=== PATIENT | female | born 1945 | race Caucasian/White ===

== ENCOUNTER 2023-12-20 15:16 | Inpatient (IN) | payer BC, MEDICARE ==
[2023-12-20 15:53] LABS: Glucose,Whole Blood 209 mg/dL (70-110)
--- NOTE | 2023-12-20 15:53 | ED ---
General Adult HPI - General Chief complaint: Weakness Stated complaint: Weakness Time Seen by Provider: 12/20/23 15:29 Source: EMS, RN notes reviewed, old records reviewed Mode of arrival: EMS Limitations: no limitations - History of Present Illness Initial comments: 78-year-old female presenting with confusion, and increased weakness. Patient is accompanied by her son. Apparently the patient has had increased confusion over the past 1 year. She had weakness which had progressed over the past several days and is currently being treated for urinary tract infection. She did not take her medication this morning which includes metoprolol, Coumadin and blood pressure medication. She denies chest pain or abdominal pain. Denies fever. Denies vomiting. Denies focal weakness. - Related Data Home Medications Medication Instructions Recorded Confirmed Insulin Glargine [Lantus Vial] 25 unit SQ DAILY@1200 12/20/23 12/20/23 Irbesartan 300 mg PO DAILY 12/20/23 12/20/23 Metoprolol Tartrate [Lopressor] 100 mg PO BID 12/20/23 12/20/23 Sulfamethox-Tmp 800-160Mg [Bactrim 1 tab PO BID 12/20/23 12/20/23 DS 800-160 mg] Warfarin Sodium 4 mg PO DAILY 12/20/23 12/20/23 hydroCHLOROthiazide [Hydrodiuril] 50 mg PO DAILY PRN 12/20/23 12/20/23 metFORMIN HCL 1,000 mg PO BID 12/20/23 12/20/23 sitaGLIPtin [Januvia] 100 mg PO DAILY 12/20/23 12/20/23 Allergies Allergy/AdvReac Type Severity Reaction Status Date / Time No Known Allergies Allergy Verified 12/20/23 15:57 Review of Systems ROS Statement: Those systems with pertinent positive or pertinent negative responses have been documented in the HPI. ROS Other: All systems not noted in ROS Statement are negative. Past Medical History Past Medical History: Atrial Fibrillation, Cancer, Diabetes Mellitus, Hypertension Additional Past Medical History / Comment(s): Breast cancer 2019 History of Any Multi-Drug Resistant Organisms: None Reported Past Surgical History: Breast Surgery, Cholecystectomy Additional Past Surgical History / Comment(s): Double masectomy 2019 Past Psychological History: No Psychological Hx Reported Smoking Status: Never smoker Past Alcohol Use History: None Reported Past Drug Use History: None Reported General Exam Limitations: no limitations General appearance: alert, in no apparent distress Head exam: Present: atraumatic, normocephalic Eye exam: Present: normal appearance, PERRL ENT exam: Present: mucous membranes dry Neck exam: Present: normal inspection. Absent: tenderness, meningismus Respiratory exam: Present: normal lung sounds bilaterally. Absent: respiratory distress, wheezes, rales Cardiovascular Exam: Present: tachycardia, irregular rhythm GI/Abdominal exam: Present: soft. Absent: distended, tenderness, guarding Extremities exam: Present: normal inspection, normal capillary refill. Absent: pedal edema Neurological exam: Present: alert, CN II-XII intact. Absent: oriented X3, motor sensory deficit Psychiatric exam: Present: normal affect, normal mood Skin exam: Present: warm, dry, intact. Absent: cyanosis, diaphoretic Course Vital Signs 12/20/23 12/20/23 12/20/23 15:19 15:49 16:23 Temperature 98.3 F Pulse Rate 124 H 121 H 107 H Pulse Rate [ Converter Skimmer ] Respiratory 18 18 20 Rate Blood Pressure 202/124 172/122 184/133 O2 Sat by Pulse 91 L 94 L 94 L Oximetry 12/20/23 12/20/23 12/20/23 16:28 16:34 17:06 Temperature 99.1 F Pulse Rate 110 H 124 H Pulse Rate [ 121 H Converter Skimmer ] Respiratory 18 20 Rate Blood Pressure 193/133 O2 Sat by Pulse 95 95 Oximetry Medical Decision Making - Medical Decision Making Was pt. sent in by a medical professional or institution (FELIZ Mejia, OPERATOR HELPER, urgent care, hospital, or longterm...) When possible be specific @ -No Did you speak to anyone other than the patient for history (EMS, parent, family, police, friend...)? What history was obtained from this source @ -No Did you review nursing and triage notes (agree or disagree)? Why? @ -I reviewed and agree with nursing and triage notes Were old charts reviewed (outside hosp., previous admission, EMS record, old EKG, old radiological studies, urgent care reports/EKG's, longterm records)? Report findings @ -No old charts were reviewed Differential Altered Mental Status: Hypoglycemia, DKA, hypercapnia, ETOH, overdose, CO poisoning, trauma, myxedema coma, HTN encephalopathy, infection, encephalitis, psychosis, intercranial hemorrhage, hepatic encephalopathy, meningitis, CVA, this is not meant to be an all-inclusive list Differential Weakness: Hypoglycemia, shock, sepsis, hyponatremia, anemia, infection, CA, ETOH, adverse medicine reaction, overdose, stroke, this is not meant to be an all-inclusive list. EKG interpreted by me (3pts min.). @EKG: Atrial fibrillation with RVR rate of 137, QRS duration 106, QTc 377, no ST segment elevation. X-rays interpreted by me (1pt min.). @Chest x-ray, increased pulmonary vascular congestion CT interpreted by me (1pt min.). @ -None done U/S interpreted by me (1pt. min.). @ -None done What testing was considered but not performed or refused? (CT, X-rays, U/S, labs)? Why? @ -None What meds were considered but not given or refused? Why? @ -None Did you discuss the management of the patient with other professionals (professionals i.e. , PA, OPERATOR HELPER, lab, RT, psych nurse, outreach and education social worker, traffic line painter, teacher, sales and service officer, casey saw operator)? Give summary @ -Dr. Wood, will admit Was smoking cessation discussed for >3mins.? @ -No Was critical care preformed (if so, how long)? @ -Yes, 35 minutes Were there social determinants of health that impacted care today? How? (Homelessness, low income, unemployed, alcoholism, drug addiction, transportation, low edu. Level, literacy, decrease access to med. care, senior care, rehab)? @ -No Was there de-escalation of care discussed even if they declined (Discuss DNR or withdrawal of care, Hospice)? DNR status @ -No What co-morbidities impacted this encounter? (DM, HTN, Smoking, COPD, CAD, Cancer, CVA, ARF, Chemo, Hep., AIDS, mental health diagnosis, sleep apnea, morbid obesity)? @ -Atrial fibrillation, hypertension Was patient admitted / discharged? Hospital course, mention meds given and route, prescriptions, significant lab abnormalities, going to OR and other pertinent info. @ -78-year-old female presenting from home with increased weakness, patient is in atrial fibrillation with RVR upon arrival. Laboratory studies reveal normal CBC, chest x-ray showing mild CHF. She has a magnesium of 1.3 which is r eplaced. Troponin is negative. Urinalysis is negative. Patient will be admitted for atrial fibrillation with RVR and CHF as well as hypomagnesemia. Undiagnosed new problem with uncertain prognosis? @ -No Drug Therapy requiring intensive monitoring for toxicity (Heparin, Nitro, Insulin, Cardizem)? @ -No Were any procedures done? @ -No Diagnosis/symptom? @Atrial fibrillation with RVR, hypomagnesemia, CHF Acute, or Chronic, or Acute on Chronic? @Acute Uncomplicated (without systemic symptoms) or Complicated (systemic symptoms)? @ -Default Side effects of treatment? @ -No Exacerbation, Progression, or Severe Exacerbation? @ -No Poses a threat to life or bodily function? How? (Chest pain, USA, CA, pneumonia, PE, COPD, DKA, ARF, appy, cholecystitis, CVA, Diverticulitis, Homicidal, Suici harsha, threat to staff... and all critical care pts) @Yes, arrhythmia, CHF - Lab Data Result diagrams: 12/20/23 15:45 12/20/23 15:45 Lab Results 12/20/23 12/20/23 12/20/23 Range/Units 15:45 15:45 15:45 WBC 8.7 (3.8-10.6) k/uL RBC 4.43 (3.80-5.40) m/uL Hgb 12.4 (11.4-16.0) gm/dL Hct 39.8 (34.0-46.0) % MCV 89.8 (80.0-100.0) fL MCH 27.9 (25.0-35.0) pg MCHC 31.1 (31.0-37.0) g/dL RDW 15.8 H (11.5-15.5) % Plt Count 311 (150-450) k/uL MPV 9.3 Neutrophils % 68 % Lymphocytes % 22 % Monocytes % 7 % Eosinophils % 1 % Basophils % 0 % Neutrophils # 5.9 (1.3-7.7) k/uL Lymphocytes # 1.9 (1.0-4.8) k/uL Monocytes # 0.6 (0-1.0) k/uL Eosinophils # 0.1 (0-0.7) k/uL Basophils # 0.0 (0-0.2) k/uL PT 17.3 H (10.0-12.5) sec INR 1.7 H (<1.2) APTT 32.8 H (22.0-30.0) sec Sodium 135 L (137-145) mmol/L Potassium 4.5 (3.5-5.1) mmol/L Chloride 102 (98-107) mmol/L Carbon Dioxide 25 (22-30) mmol/L Anion Gap 8 mmol/L BUN 22 H (7-17) mg/dL Creatinine 0.67 (0.52-1.04) mg/dL Est GFR (CKD-EPI)AfAm >90 (>60 ml/min/1.73 sqM) Est GFR (CKD-EPI)NonAf 83 (>60 ml/min/1.73 sqM) Glucose 203 H (74-99) mg/dL POC Glucose (mg/dL) (70-110) mg/dL POC Glu System Specialist ID Plasma Lactic Acid Daniel (0.7-2.0) mmol/L Calcium 9.4 (8.4-10.2) mg/dL Magnesium 1.3 L (1.6-2.3) mg/dL Total Bilirubin 0.8 (0.2-1.3) mg/dL AST 47 H (14-36) U/L ALT 39 H (4-34) U/L Alkaline Phosphatase 97 (38-126) U/L Troponin I (0.000-0.034) ng/mL Total Protein 7.0 (6.3-8.2) g/dL Albumin 3.9 (3.5-5.0) g/dL Urine Color Urine Appearance (Clear) Urine pH (5.0-8.0) Ur Specific Weston (1.001-1.035) Urine Protein (Negative) Urine Glucose (UA) (Negative) Urine Ketones (Negative) Urine Blood (Negative) Urine Nitrite (Negative) Urine Bilirubin (Negative) Urine Urobilinogen (<2.0) mg/dL Ur Leukocyte Esterase (Negative) 12/20/23 12/20/23 12/20/23 Range/Units 15:45 15:45 15:51 WBC (3.8-10.6) k/uL RBC (3.80-5.40) m/uL Hgb (11.4-16.0) gm/dL Hct (34.0-46.0) % MCV (80.0-100.0) fL MCH (25.0-35.0) pg MCHC (31.0-37.0) g/dL RDW (11.5-15.5) % Plt Count (150-450) k/uL MPV Neutrophils % % Lymphocytes % % Monocytes % % Eosinophils % % Basophils % % Neutrophils # (1.3-7.7) k/uL Lymphocytes # (1.0-4.8) k/uL Monocytes # (0-1.0) k/uL Eosinophils # (0-0.7) k/uL Basophils # (0-0.2) k/uL PT (10.0-12.5) sec INR (<1.2) APTT (22.0-30.0) sec Sodium (137-145) mmol/L Potassium (3.5-5.1) mmol/L Chloride (98-107) mmol/L Carbon Dioxide (22-30) mmol/L Anion Gap mmol/L BUN (7-17) mg/dL Creatinine (0.52-1.04) mg/dL Est GFR (CKD-EPI)AfAm (>60 ml/min/1.73 sqM) Est GFR (CKD-EPI)NonAf (>60 ml/min/1.73 sqM) Glucose (74-99) mg/dL POC Glucose (mg/dL) 209 H (70-110) mg/dL POC Glu System Specialist ID Vagdaniel, Glenna Plasma Lactic Acid Daniel 1.7 (0.7-2.0) mmol/L Calcium (8.4-10.2) mg/dL Magnesium (1.6-2.3) mg/dL Total Bilirubin (0.2-1.3) mg/dL AST (14-36) U/L ALT (4-34) U/L Alkaline Phosphatase (38-126) U/L Troponin I <0.012 (0.000-0.034) ng/mL Total Protein (6.3-8.2) g/dL Albumin (3.5-5.0) g/dL Urine Color Urine Appearance (Clear) Urine pH (5.0-8.0) Ur Specific Weston (1.001-1.035) Urine Protein (Negative) Urine Glucose (UA) (Negative) Urine Ketones (Negative) Urine Blood (Negative) Urine Nitrite (Negative) Urine Bilirubin (Negative) Urine Urobilinogen (<2.0) mg/dL Ur Leukocyte Esterase (Negative) 12/20/23 Range/Units 16:51 WBC (3.8-10.6) k/uL RBC (3.80-5.40) m/uL Hgb (11.4-16.0) gm/dL Hct (34.0-46.0) % MCV (80.0-100.0) fL MCH (25.0-35.0) pg MCHC (31.0-37.0) g/dL RDW (11.5-15.5) % Plt Count (150-450) k/uL MPV Neutrophils % % Lymphocytes % % Monocytes % % Eosinophils % % Basophils % % Neutrophils # (1.3-7.7) k/uL Lymphocytes # (1.0-4.8) k/uL Monocytes # (0-1.0) k/uL Eosinophils # (0-0.7) k/uL Basophils # (0-0.2) k/uL PT (10.0-12.5) sec INR (<1.2) APTT (22.0-30.0) sec Sodium (137-145) mmol/L Potassium (3.5-5.1) mmol/L Chloride (98-107) mmol/L Carbon Dioxide (22-30) mmol/L Anion Gap mmol/L BUN (7-17) mg/dL Creatinine (0.52-1.04) mg/dL Est GFR (CKD-EPI)AfAm (>60 ml/min/1.73 sqM) Est GFR (CKD-EPI)NonAf (>60 ml/min/1.73 sqM) Glucose (74-99) mg/dL POC Glucose (mg/dL) (70-110) mg/dL POC Glu System Specialist ID Plasma Lactic Acid Daniel (0.7-2.0) mmol/L Calcium (8.4-10.2) mg/dL Magnesium (1.6-2.3) mg/dL Total Bilirubin (0.2-1.3) mg/dL AST (14-36) U/L ALT (4-34) U/L Alkaline Phosphatase (38-126) U/L Troponin I (0.000-0.034) ng/mL Total Protein (6.3-8.2) g/dL Albumin (3.5-5.0) g/dL Urine Color Light Yellow Urine Appearance Clear (Clear) Urine pH 5.5 (5.0-8.0) Ur Specific Weston 1.015 (1.001-1.035) Urine Protein Trace H (Negative) Urine Glucose (UA) Negative (Negative) Urine Ketones 1+ H (Negative) Urine Blood Negative (Negative) Urine Nitrite Negative (Negative) Urine Bilirubin Negative (Negative) Urine Urobilinogen <2.0 (<2.0) mg/dL Ur Leukocyte Esterase Negative (Negative) Critical Care Time Critical Care Time: Yes Total Critical Care Time: 35 Disposition Clinical Impression: Atrial fibrillation with RVR, CHF (congestive heart failure), Hypomagnesemia Disposition: ADMITTED IP TO THIS HOSP Condition: Stable Is patient prescribed a controlled substance at d/c from ED?: No Referrals: Amarilis Thornton MD [Primary Care Provider] - 1-2 days Time of Disposition: 17:11
--- NOTE | 2023-12-20 16:20 | XR ---
EXAMINATION TYPE: XR chest 2V DATE OF EXAM: 12/20/2023 4:12 PM CLINICAL INDICATION:Female, 78 years old with history of Weakness; PHH COMPARISON: None TECHNIQUE: XR chest 2V Frontal and lateral views of the chest. FINDINGS: Lungs/Pleura: There is no evidence of pleural effusion, focal consolidation, or pneumothorax. Pulmonary vascularity: Pulmonary vascular congestion. Heart/mediastinum: Cardiomediastinal silhouette is enlarged and stable. Musculoskeletal: No acute osseous pathology. Surgical clips project over the left axilla. IMPRESSION: Cardiomegaly and mild pulmonary vascular congestion. Correlate with BNP for congestive heart failure.
[2023-12-20 16:35] LABS: Basophils % (A) 0 %; Eosinophils # (A) 0.1 k/uL (0-0.7); Eosinophils % (A) 1 %; HCT 39.8 % (34.0-46.0); HGB 12.4 gm/dL (11.4-16.0); Lymphocytes # (A) 1.9 k/uL (1.0-4.8); Lymphocytes % (A) 22 %; MCH 27.9 pg (25.0-35.0); MCHC 31.1 g/dL (31.0-37.0); MCV 89.8 fL (80.0-100.0); Mean Platelet Volume 9.3; Monocytes # (A) 0.6 k/uL (0-1.0); Monocytes % (A) 7 %; Neutrophils # (A) 5.9 k/uL (1.3-7.7); Neutrophils % (A) 68 %; Platelet Count 311 k/uL (150-450); RBC 4.43 m/uL (3.80-5.40); RDW 15.8 % (11.5-15.5); WBC 8.7 k/uL (3.8-10.6)
[2023-12-20 16:43] LABS: INR 1.7 (<1.2); Partial Thromboplastin Time 32.8 sec (22.0-30.0); Prothrombin Time 17.3 sec (10.0-12.5)
[2023-12-20 16:58] LABS: Appearance,Urine Clear (Clear); Bilirubin,Urine Negative (Negative); Blood,Urine Negative (Negative); Color,Urine Light Yellow; Glucose,Urine (UA) Negative (Negative); Ketones,Urine 1+ (Negative); Leukocyte Esterase,Urine Negative (Negative); Nitrite,Urine Negative (Negative); PH, Urine 5.5 (5.0-8.0); Protein,Urine Trace (Negative); Specific Gravity,Urine 1.015 (1.001-1.035); Urobilinogen,Urine <2.0 mg/dL (<2.0)
[2023-12-20 16:59] LABS: ALT 39 U/L (4-34); AST 47 U/L (14-36); African American GFR (CKD) >90 (>60 ml/min/1.73 sqM); Albumin 3.9 g/dL (3.5-5.0); Alkaline Phosphatase 97 U/L (38-126); Anion Gap 8 mmol/L; Blood Urea Nitrogen 22 mg/dL (7-17); Calcium 9.4 mg/dL (8.4-10.2); Carbon Dioxide 25 mmol/L (22-30); Chloride 102 mmol/L (98-107); Glucose 203 mg/dL (74-99); Magnesium 1.3 mg/dL (1.6-2.3); Non-African American GFR(CKD) 83 (>60 ml/min/1.73 sqM); Potassium 4.5 mmol/L (3.5-5.1); Sodium 135 mmol/L (137-145); Total Bilirubin 0.8 mg/dL (0.2-1.3)
[2023-12-20] MEDS: SODIUM CHLORIDE 0.9% 500 ML 500 ML IV STA (17:05)
[2023-12-20] MEDS ORDERED: NALOXONE 0.4 MG/ML 1 ML VIAL IV PRN (17:08)
[2023-12-20] MEDS: DILTIAZEM 125 MG in SODIUM CHLORIDE 0.9% 100 ML IV SCH (18:35)
[2023-12-20] MEDS: FUROSEMIDE 10 MG/ML 4 ML VIAL IV STA (18:35)
[2023-12-20] MEDS: DILTIAZEM DRIP BOLUS FROM BAG 1 MG SOLN IV ONE (18:40)
[2023-12-20] MEDS: MAGNESIUM SULFATE-D5W PMX 1 GM in DEXTROSE/WATER 1 100ML.BAG IVPB SCH (18:41)
[2023-12-20] MEDS: ACETAMINOPHEN TAB 500 MG TAB PO STA (19:58)
[2023-12-21 09:46] LABS: INR 2.2 (<1.2); Prothrombin Time 21.8 sec (10.0-12.5)
[2023-12-21] MEDS: LINAGLIPTIN 5 MG TABLET PO SCH (10:52)
[2023-12-21] MEDS: DILTIAZEM ORAL 30 MG TAB PO SCH (10:52)
[2023-12-21] MEDS: metFORMIN 500 MG TAB PO SCH (10:52)
[2023-12-21] MEDS: INSULIN DETEMIR (LEVEMIR) 100 UNIT/ML SYR SQ SCH (10:52)
[2023-12-21] MEDS: LOSARTAN 50 MG TAB PO SCH (10:52)
[2023-12-21] MEDS: METOPROLOL TARTRATE 50 MG TAB PO SCH (10:52)
[2023-12-21] MEDS: MAGNESIUM SULFATE-D5W PMX 1 GM in DEXTROSE/WATER 1 100ML.BAG IVPB SCH ×2 (11:16→16:02)
[2023-12-21] MEDS: NON FORMULARY DRUG (Warfarin Sodium [Warfarin Sodium] 4 MG Tablet) PO SCH (11:16)
[2023-12-21 11:21] LABS: NT-Pro-B-Type Natriuretic Pept 7630 pg/mL
[2023-12-21] MEDS ORDERED: DEXTROSE 50% SYRINGE 50 ML IVP PRN ×2 (11:40)
--- NOTE | 2023-12-21 11:43 | P.HPIM ---
History of Present Illness H&P Date: 12/21/23 Viola Mckeon, is an 78-year-old female patient presents to ER with concerns ofincreased weakness. Records also indicate that patient has had increased confusion over the past year. Patient has poor historian no family present most history is obtained from medical record. According to records patient was recently treated for urinary tract infection. Patient has a past medical history of atrial fibrillation in which she is maintained on Coumadin, diabetes mellitus, breast cancer in 2019 status post bilateral mastectomy, and hypertension.EKG completed showing atrial fibrillation with rapid ventricular response and a heart rate of 137. Chest x-ray completed showing cardiomegaly and pulmonary vascular congestion.labwork revealing troponin 0.012, BNP 7630. UA was negative. This time patient is sitting in bed. Patient denies chest pain or shortness of breath. Patient denies nausea vomiting or diarrhea. Patient denies any urinary burning or frequency Review of Systems please refer to HPI otherwise unremarkable Past Medical History Past Medical History: Atrial Fibrillation, Cancer, Diabetes Mellitus, Hypertensi on Additional Past Medical History / Comment(s): Breast cancer 2019 History of Any Multi-Drug Resistant Organisms: None Reported Past Surgical History: Breast Surgery, Cholecystectomy Additional Past Surgical History / Comment(s): Double masectomy 2019 Past Anesthesia/Blood Transfusion Reactions: No Reported Reaction Past Psychological History: No Psychological Hx Reported Smoking Status: Never smoker Past Alcohol Use History: None Reported Past Drug Use History: None Reported Medications and Allergies Home Medications Medication Instructions Recorded Confirmed Type Insulin Glargine [Lantus Vial] 25 unit SQ DAILY@1200 12/20/23 12/20/23 History Metoprolol Tartrate [Lopressor] 100 mg PO BID 12/20/23 12/20/23 History RX: Irbesartan 300 mg PO DAILY 12/20/23 12/20/23 History RX: Warfarin Sodium 4 mg PO DAILY 12/20/23 12/20/23 History RX: metFORMIN HCL 1,000 mg PO BID 12/20/23 12/20/23 History Sulfamethox-Tmp 800-160Mg [Bactrim 1 tab PO BID 12/20/23 12/20/23 History DS 800-160 mg] hydroCHLOROthiazide [Hydrodiuril] 50 mg PO DAILY PRN 12/20/23 12/20/23 History sitaGLIPtin [Januvia] 100 mg PO DAILY 12/20/23 12/20/23 History Allergies Allergy/AdvReac Type Severity Reaction Status Date / Time No Known Allergies Allergy Verified 12/20/23 15:57 Physical Exam Vitals: Vital Signs Temp Pulse Pulse Pulse Resp BP BP 12/21/23 08:00 98 F 129 H 18 135/75 12/21/23 04:00 97.6 F 104 H 20 160/72 12/21/23 00:00 97.2 F L 102 H 20 12/20/23 23:43 97.2 F L 102 H 20 12/20/23 19:44 117 H 18 186/118 12/20/23 18:53 89 12/20/23 18:52 96 18 192/115 12/20/23 18:42 98.5 F 92 20 210/135 12/20/23 18:00 97.8 F 131 H 20 12/20/23 17:06 124 H 20 12/20/23 16:34 99.1 F 110 H 18 193/133 12/20/23 16:28 121 H 12/20/23 16:23 107 H 20 184/133 12/20/23 15:49 121 H 18 172/122 12/20/23 15:19 98.3 F 124 H 18 202/124 Pulse Ox 12/21/23 08:00 94 L 12/21/23 04:00 94 L 12/21/23 00:00 94 L 12/20/23 23:43 94 L 12/20/23 19:44 95 12/20/23 18:53 12/20/23 18:52 95 12/20/23 18:42 93 L 12/20/23 18:00 95 12/20/23 17:06 95 12/20/23 16:34 95 12/20/23 16:28 12/20/23 16:23 94 L 12/20/23 15:49 94 L 12/20/23 15:19 91 L Intake and Output 12/20/23 12/21/23 12/21/23 22:59 06:59 14:59 Other: # Voids 2 Weight 90.718 kg 90.718 kg Head normocephalic Neck supple Lungs clear to auscultation bilaterally no wheezing or crackles Heart irregular heart rate known atrial fibrillation Abdomen is soft nontender nondistended positive bowel sounds no hepatosplenomegaly Extremities no edema Neuro alert and orientated to 3 Results CBC & Chem 7: 12/20/23 15:45 12/20/23 15:45 Labs: Abnormal Lab Results - Last 24 Hours (Table) 12/20/23 12/20/23 12/20/23 Range/Units 15:45 15:45 15:45 RDW 15.8 H (11.5-15.5) % PT 17.3 H (10.0-12.5) sec INR 1.7 H (<1.2) APTT 32.8 H (22.0-30.0) sec Sodium 135 L (137-145) mmol/L BUN 22 H (7-17) mg/dL Glucose 203 H (74-99) mg/dL POC Glucose (mg/dL) (70-110) mg/dL Magnesium 1.3 L (1.6-2.3) mg/dL AST 47 H (14-36) U/L ALT 39 H (4-34) U/L Urine Protein (Negative) Urine Ketones (Negative) 12/20/23 12/20/23 Range/Units 15:51 16:51 RDW (11.5-15.5) % PT (10.0-12.5) sec INR (<1.2) APTT (22.0-30.0) sec Sodium (137-145) mmol/L BUN (7-17) mg/dL Glucose (74-99) mg/dL POC Glucose (mg/dL) 209 H (70-110) mg/dL Magnesium (1.6-2.3) mg/dL AST (14-36) U/L ALT (4-34) U/L Urine Protein Trace H (Negative) Urine Ketones 1+ H (Negative) Assessment and Plan Assessment: 1. Increased weakness 2. Atrial fibrillation with rapid ventricular response 3. History of atrial fibrillation maintained on Coumadin 4. Recent urinary tract infection. Patient was treated outpatient UA negative 5. History of diabetes mellitus type 2 6. History of essential hypertension 7. History of breast cancer in 2019 with double mastectomy DVT prophylaxis Coumadin. GI prophylaxis Pepcid Cardiology services consulted 2-D echo ordered Patient maintained on Cardizem drip PT OT and case management services consult for discharge planning Repeat labs ordered Time with Patient: Greater than 30 (Greater than 60% of the total time spent in counseling and coordination of care)
[2023-12-21] MEDS: INSULIN ASPART (NovoLOG) 100 UNIT/ML VIAL SQ SCH (13:00)
--- NOTE | 2023-12-21 13:29 | P.CRDCN ---
History of Present Illness History of present illness: HISTORY OF PRESENT ILLNESS: This is a 78-year-old female with a past medical history significant for atrial fibrillation, hypertension, hyperlipidemia, diabetes, CVA, and breast cancer. Adam manolo does not follow with a folder seamer. We have been asked to see the patient in consultation for atrial fibrillation and congestive heart failure. Patient examined at the bedside. Patient's son is at the bedside and providing additional HPI. Patient was recently diagnosed with a urinary tract infection. He states that she has been getting more weak at home. She also has had some altered mental status. She denied any fever or chills. She reports having shortness of breath with exertion on an outpatient basis. She states walking to her mailbox she will become dyspneic. Patient's son also reports that the patient has had breast cancer twice. He states the first time she underwent a double mastectomy and refused radiation or chemotherapy at that time. Last year the patient had a recurrence of her breast cancer and had a surgical procedure to remove the "wound" per her son. She once again refused radiation or chemotherapy. The patient states that she did see a folder seamer last year in [place] before proceeding with her breast surgery. She denies any history of coronary artery disease or congestive heart failure. The patient's family states that she is very weak and they are interested in ECF at the time of discharge. DIAGNOSTICS: - EKG reveals atrial fibrillation with RVR. - Chest xray cardiomegaly and mild pulmonary vascular congestion. - Laboratory data: WBC 8.7. Hemoglobin 12.4. Platelet count 311. Sodium 135. Potassium 4.5. BUN 22. Creatinine 0.67. Magnesium 1.4. Troponin negative x 1. proBNP 7630. TSH 1.180. - Current home cardiac medications include warfarin 4 mg daily, irbesartan 300 mg daily, Toprol tartrate 100 mg twice a day, and hydrochlorothiazide 50 mg daily as needed. REVIEW OF SYSTEMS: At the time of my exam: CONSTITUTIONAL: Denies fever or chills. HEENT: Denies blurred vision, vision changes, or eye pain. Denies hemoptysis CARDIOVASCULAR: Denies chest pain. Denies orthopnea. Denies PND. Denies palpitations RESPIRATORY: Denies shortness of breath. GASTROINTESTINAL: Denies abdominal pain. Denies nausea or vomiting. HEMATOLOGIC: Denies bleeding disorders. GENITOURINARY: Denies any blood in urine. SKIN: Denies pruitis. Denies rash. PHYSICAL EXAM: VITAL SIGNS: Reviewed. GENERAL: Well-developed in no acute distress. HEENT: Head is normocephalic. Pupils are equal, round. Sclerae anicteric. Mucous membranes of the mouth are moist. Neck supple. No JVD or thyromegaly LUNGS: Respirations even and unlabored. Lungs essentially clear to auscultation bilaterally. HEART: Tachycardic. Irregular rate and rhythm. S1 and S2 heard. ABDOMEN: Soft. Nondistended. Nontender. EXTREMITIES: Normal range of motion. No clubbing or cyanosis. Peripheral pulses intact. No lower extremity edema NEUROLOGIC: Awake and alert. Oriented x 3. ASSESSMENT: Atrial fibrillation with RVR, paroxysmal versus persistent Recent urinary tract infection, treated outpatient Altered mental status, resolved Subtherapeutic INR Hypertension Hyperlipidemia Diabetes History of CVA History of breast cancer with previous bilateral mastectomy Hypomagnesemia PLAN: Obtain 2D echo to assess cardiac structure and function Discontinue Coumadin. Begin Eliquis 5 mg twice a day starting tomorrow morning Resume home cardiac medications Add oral Cardizem 30 mg 3 times a day for optimal heart rate control Continue telemetry monitoring Replace magnesium Discontinue IV Cardizem Case management consulted for possible ECF at discharge Further recommendations pending patient course Nurse practitioner note has been reviewed by physician. Signing provider agrees with the documented findings, assessment, and plan of care documented by KEY CUTTER as a scribe. Past Medical History Past Medical History: Atrial Fibrillation, Cancer, Diabetes Mellitus, Hypertension Additional Past Medical History / Comment(s): Breast cancer 2019 History of Any Multi-Drug Resistant Organisms: None Reported Past Surgical History: Breast Surgery, Cholecystectomy Additional Past Surgical History / Comment(s): Double masectomy 2019 Past Anesthesia/Blood Transfusion Reactions: No Reported Reaction Past Psychological History: No Psychological Hx Reported Smoking Status: Never smoker Past Alcohol Use History: None Reported Past Drug Use History: None Reported Medications and Allergies Home Medications Medication Instructions Recorded Confirmed Type Insulin Glargine [Lantus Vial] 25 unit SQ DAILY@1200 12/20/23 12/20/23 History Irbesartan 300 mg PO DAILY 12/20/23 12/20/23 History Metoprolol Tartrate [Lopressor] 100 mg PO BID 12/20/23 12/20/23 History Sulfamethox-Tmp 800-160Mg [Bactrim 1 tab PO BID 12/20/23 12/20/23 History DS 800-160 mg] Warfarin Sodium 4 mg PO DAILY 12/20/23 12/20/23 History hydroCHLOROthiazide [Hydrodiuril] 50 mg PO DAILY PRN 12/20/23 12/20/23 History metFORMIN HCL 1,000 mg PO BID 12/20/23 12/20/23 History sitaGLIPtin [Januvia] 100 mg PO DAILY 12/20/23 12/20/23 History Allergies Allergy/AdvReac Type Severity Reaction Status Date / Time No Known Allergies Allergy Verified 12/20/23 15:57 Physical Exam Vitals: Vital Signs Temp Pulse Pulse Pulse Resp BP BP 12/21/23 08:00 98 F 129 H 18 135/75 12/21/23 04:00 97.6 F 104 H 20 160/72 12/21/23 00:00 97.2 F L 102 H 20 12/20/23 23:43 97.2 F L 102 H 20 12/20/23 19:44 117 H 18 186/118 12/20/23 18:53 89 12/20/23 18:52 96 18 192/115 12/20/23 18:42 98.5 F 92 20 210/135 12/20/23 18:00 97.8 F 131 H 20 12/20/23 17:06 124 H 20 12/20/23 16:34 99.1 F 110 H 18 193/133 12/20/23 16:28 121 H 12/20/23 16:23 107 H 20 184/133 12/20/23 15:49 121 H 18 172/122 12/20/23 15:19 98.3 F 124 H 18 202/124 Pulse Ox 12/21/23 08:00 94 L 12/21/23 04:00 94 L 12/21/23 00:00 94 L 12/20/23 23:43 94 L 12/20/23 19:44 95 12/20/23 18:53 12/20/23 18:52 95 12/20/23 18:42 93 L 12/20/23 18:00 95 12/20/23 17:06 95 12/20/23 16:34 95 12/20/23 16:28 12/20/23 16:23 94 L 12/20/23 15:49 94 L 12/20/23 15:19 91 L Intake and Output 12/20/23 12/21/23 12/21/23 22:59 06:59 14:59 Other: # Voids 2 Weight 90.718 kg 90.718 kg Results 12/20/23 15:45 12/20/23 15:45 Cardiac Enzymes 12/20/23 12/20/23 Range/Units 15:45 15:45 AST 47 H (14-36) U/L Troponin I <0.012 (0.000-0.034) ng/mL Coagulation 12/20/23 12/21/23 Range/Units 15:45 09:22 PT 17.3 H 21.8 H (10.0-12.5) sec APTT 32.8 H (22.0-30.0) sec CBC 12/20/23 Range/Units 15:45 WBC 8.7 (3.8-10.6) k/uL RBC 4.43 (3.80-5.40) m/uL Hgb 12.4 (11.4-16.0) gm/dL Hct 39.8 (34.0-46.0) % Plt Count 311 (150-450) k/uL Comprehensive Metabolic Panel 12/20/23 Range/Units 15:45 Sodium 135 L (137-145) mmol/L Potassium 4.5 (3.5-5.1) mmol/L Chloride 102 (98-107) mmol/L Carbon Dioxide 25 (22-30) mmol/L BUN 22 H (7-17) mg/dL Creatinine 0.67 (0.52-1.04) mg/dL Glucose 203 H (74-99) mg/dL Calcium 9.4 (8.4-10.2) mg/dL AST 47 H (14-36) U/L ALT 39 H (4-34) U/L Alkaline Phosphatase 97 (38-126) U/L Total Protein 7.0 (6.3-8.2) g/dL Albumin 3.9 (3.5-5.0) g/dL Current Medications Generic Name Dose Route Start Last Admin Trade Name Freq PRN Reason Stop Dose Admin Diltiazem HCl 125 mg/ Sodium 125 mls @ 5 mls/hr 12/20/23 17:30 12/20/23 18:35 Chloride IV 5 mg/hr .Q24H RACIEL 5 mls/hr Administration 5 MG/HR Insulin Detemir 25 unit 12/21/23 12:00 Insulin Detemir (Levemir) 100 Unit/Ml Syr SQ DAILY@1200 COUNT INCLUDES THE [facility] Linagliptin 5 mg 12/21/23 09:00 Linagliptin 5 Mg Tablet PO DAILY COUNT INCLUDES THE [facility] Losartan Potassium 100 mg 12/21/23 09:00 Losartan 50 Mg Tab PO DAILY COUNT INCLUDES THE [facility] Metformin HCl 1,000 mg 12/21/23 09:00 Metformin 500 Mg Tab PO BID-W/MEALS COUNT INCLUDES THE [facility] Metoprolol Tartrate 100 mg 12/21/23 09:00 Metoprolol Tartrate 50 Mg Tab PO BID COUNT INCLUDES THE [facility] Miscellaneous Information 0 each 12/21/23 08:34 Warfarin Per Pharmacy MISCELLANE DIRECTED PRN PHARMACY DOSING PROTOCOL Naloxone HCl 0.2 mg 12/20/23 17:08 Naloxone 0.4 Mg/Ml 1 Ml Vial IV Q2M PRN Opioid Reversal Non-Formulary Medication 4 mg 12/21/23 09:00 Warfarin Sodium [Warfarin Sodium] PO DAILY COUNT INCLUDES THE [facility] Intake and Output 12/20/23 12/21/23 12/21/23 22:59 06:59 14:59 Other: # Voids 2 Weight 90.718 kg 90.718 kg 12/20/23 15:45 12/20/23 15:45
[2023-12-21 16:52] LABS: Glucose,Whole Blood 273 mg/dL (70-110)
--- NOTE | 2023-12-21 18:18 | CA ---
Transthoracic Echo Report Name: Viola Mckeon Age: 78 Gender: F : 1945 Exam Date: 12/21/2023 14:33 Exam Location: [place] [facility] Ht (in): 66 Wt (lb): 200 Ordering Physician: Reyna Huber Attending/Referring Phys: [id number], Cecile Director Of Training Rosa Roa RDCS Procedure CPT: Indications: LV function, AF Cardiac Hx: Technical Quality: Good Contrast 1: Total Dose (mL): Contrast 2: Total Dose (mL): MEASUREMENTS (Male / Female) Normal Values 2D ECHO LV Diastolic Diameter PLAX 5.7 cm 4.2 - 5.9 / 3.9 - 5.3 cm LV Systolic Diameter PLAX 3.7 cm IVS Diastolic Thickness 1.0 cm 0.6 - 1.0 / 0.6 - 0.9 cm LVPW Diastolic Thickness 0.8 cm 0.6 - 1.0 / 0.6 - 0.9 cm LV Relative Wall Thickness 0.3 RV Internal Dim ED PLAX 3.4 cm LVOT Diameter 1.9 cm LV Diastolic Volume MOD BP 114.2 cm??? 67 - 155 / 56 - 104 cm??? LV Systolic Volume MOD BP 69.6 cm??? 22 - 58 / 19 - 49 cm??? LV Ejection Fraction MOD BP 39.0 % >= 55 % LV Cardiac Index MOD BP 1878.4 cm???/min???m??? LV Diastolic Volume MOD 4C 111.6 cm??? LV Systolic Volume MOD 4C 70.1 cm??? LV Ejection Fraction MOD 4C 37.2 % LV Cardiac Index MOD 4C 1750.8 cm???/min???m??? LV Diastolic Length 4C 8.2 cm LV Systolic Length 4C 7.8 cm LV Diastolic Volume MOD 2C 115.0 cm??? LV Systolic Volume MOD 2C 62.9 cm??? LV Ejection Fraction MOD 2C 45.3 % LV Cardiac Index MOD 2C 2198.6 cm???/min???m??? LV Diastolic Length 2C 8.4 cm LV Systolic Length 2C 7.0 cm LA Volume 122.8 cm??? 18 - 58 / 22 - 52 cm??? LA Volume Index 58.8 cm???/m??? 16 - 28 cm???/m??? DOPPLER AV Peak Velocity 150.0 cm/s AV Peak Gradient 9.0 mmHg AV Mean Velocity 112.7 cm/s AV Mean Gradient 5.5 mmHg AV Velocity Time Integral 29.3 cm LVOT Peak Velocity 111.7 cm/s LVOT Peak Gradient 5.0 mmHg LVOT Velocity Time Integral 20.9 cm LVOT Stroke Volume 57.1 cm??? LVOT Stroke Volume Index 28.5 ml/m??? LVOT Cardiac Index 2406.5 cm???/min???m??? AV Area Cont Eq vti 1.9 cm??? AV Area Cont Eq pk 2.0 cm??? MV Peak Velocity 136.7 cm/s MV Peak Gradient 7.5 mmHg MV Mean Velocity 80.0 cm/s MV Mean Gradient 3.1 mmHg MV Velocity Time Integral 26.3 cm TR Peak Velocity 303.7 cm/s TR Peak Gradient 36.9 mmHg Right Atrial Pressure 15.0 mmHg Pulmonary Artery Systolic Pressu 51.9 mmHg Right Ventricular Systolic Press 51.9 mmHg PV Peak Velocity 110.3 cm/s PV Peak Gradient 4.9 mmHg FINDINGS Left Ventricle Left ventricular ejection fraction is estimated at 40-45 % with beat to beat variability. Mildly increased septal wall thickness. Mildly increased left ventricular diastolic diameter. Mildly increased left ventricular diastolic volume. Moderately increased left ventricular systolic volume. Moderately decreased left ventricular ejection fraction. Right Ventricle Mild right ventricular dilatation with mildly reduced function. Moderately increased right ventricular systolic pressure. Right Atrium Severe right atrial dilatation. Left Atrium Severely increased left atrial volume. Moderately increased left atrial area. Mitral Valve Mitral valve thickened. No evidence for mitral valve prolapse. Mild mitral stenosis. Mild mitral regurgitation. Aortic Valve Trileaflet aortic valve. No aortic valve stenosis or regurgitation. Tricuspid Valve Tricuspid valve not well visualized. No tricuspid stenosis. Moderate tricuspid regurgitation. Pulmonic Valve Structurally normal pulmonic valve. No pulmonic stenosis. No pulmonic regurgitation. Pericardium No pericardial effusion. Aorta Normal size aortic root and proximal ascending aorta. CONCLUSIONS Mildly dilated LV. The LV systolic function is impaired at 40-45% [id number] mitral regurgitation and mild mitral stenosis Moderate pulmonary hypertension Enlarged right ventricle with mildly reduced function Moderate tricuspid regurgitation Previewed by: Dr. Oni Nichole MD (Electronically Signed) Final Date: 21 Dec 2023 18:18
[2023-12-21 20:05] LABS: Glucose,Whole Blood 243 mg/dL (70-110)
[2023-12-22 06:23] LABS: Glucose,Whole Blood 123 mg/dL (70-110)
[2023-12-22 07:13] LABS: INR 1.4 (<1.2); Prothrombin Time 14.7 sec (10.0-12.5)
[2023-12-22] MEDS: APIXABAN 5 MG TAB PO SCH (08:16)
[2023-12-22] MEDS: FAMOTIDINE 20 MG TAB PO SCH (08:16)
--- NOTE | 2023-12-22 11:26 | P.PN ---
Subjective Progress Note Date: 12/22/23 Viola Mckeon, is an 78-year-old female patient presents to ER with concerns ofincreased weakness. Records also indicate that patient has had increased confusion over the past year. Patient has poor historian no family present most history is obtained from medical record. According to records patient was recently treated for urinary tract infection. Patient has a past medical history of atrial fibrillation in which she is maintained on Coumadin, diabetes mellitus, breast cancer in 2019 status post bilateral mastectomy, and hypertension.EKG completed showing atrial fibrillation with rapid ventricular response and a heart rate of 137. Chest x-ray completed showing cardiomegaly and pulmonary vascular congestion. labwork revealing troponin 0.012, BNP 7630. UA was negative. This time patient is sitting in bed. Patient denies chest pain or shortness of breath. Patient denies nausea vomiting or diarrhea. Patient denies any urinary burning or frequency On 12/22/2023 patient was seen and examined on the medical floor, she is alert and oriented 3 in no apparent distress, there is no fever or chills no headache or dizziness no chest pain no shortness of breath no cough no nausea or vomiting no abdominal pain no diarrhea and no urinary symptoms. Vital examination reveals a temperature of 97.5 pulse 125 respiration 16 blood pressure 166/76 pulse ox 95% on room air Objective - Vital Signs Vital signs: Vital Signs Temp 97.4 F L 12/22/23 03:33 Pulse 78 12/22/23 03:33 Resp 18 12/22/23 03:33 BP 125/61 12/22/23 03:33 Pulse Ox 96 12/22/23 03:33 FiO2 Intake & Output 12/21/23 12/22/23 12/22/23 18:59 06:59 18:59 Intake Total 338 Balance 338 Weight 89.4 kg Intake: Oral 338 Other: # Voids 1 1 - Exam Head normocephalic Neck supple Lungs clear to auscultation bilaterally no wheezing or crackles Heart irregular heart rate known atrial fibrillation Abdomen is soft nontender nondistended positive bowel sounds no hepatosplenomegaly Extremities no edema Neuro alert and orientated to 3 - Labs CBC & Chem 7: 12/20/23 15:45 12/20/23 15:45 Labs: Abnormal Lab Results - Last 24 Hours (Table) 12/21/23 12/21/23 12/21/23 Range/Units 09:22 09:22 16:46 PT 21.8 H (10.0-12.5) sec INR 2.2 H (<1.2) POC Glucose (mg/dL) 273 H (70-110) mg/dL Magnesium 1.4 L (1.6-2.3) mg/dL 12/21/23 12/22/23 12/22/23 Range/Units 19:58 06:21 06:49 PT 14.7 H (10.0-12.5) sec INR 1.4 H (<1.2) POC Glucose (mg/dL) 243 H 123 H (70-110) mg/dL Magnesium (1.6-2.3) mg/dL Assessment and Plan Assessment: 1. Increased weakness 2. Atrial fibrillation with rapid ventricular response 3. History of atrial fibrillation maintained on Coumadin 4. Recent urinary tract infection. Patient was treated outpatient UA negative 5. History of diabetes mellitus type 2 6. History of essential hypertension 7. History of breast cancer in 2019 with double mastectomy DVT prophylaxis Coumadin. GI prophylaxis Pepcid Cardiology services consulted 2-D echo ordered Patient maintained on Cardizem drip PT OT and case management services consult for discharge planning Repeat labs ordered
[2023-12-22 11:39] LABS: Glucose,Whole Blood 244 mg/dL (70-110)
[2023-12-22] MEDS: DAPAGLIFLOZIN PROPANEDIOL 10 MG TABLET PO SCH (11:46)
[2023-12-22] MEDS: FUROSEMIDE 20 MG TAB PO SCH (11:46)
--- NOTE | 2023-12-22 12:05 | P.PN ---
Subjective HISTORY OF PRESENT ILLNESS: This is a 78-year-old female with a past medical history significant for atrial fibrillation, hypertension, hyperlipidemia, diabetes, CVA, and breast cancer. Patient does not follow with a flarer. We have been asked to see the patient in consultation for atrial fibrillation and congestive heart failure. Patient examined at the bedside. Patient's son is at the bedside and providing additional HPI. Patient was recently diagnosed with a urinary tract infection. He states that she has been getting more weak at home. She also has had some altered mental status. She denied any fever or chills. She reports having shortness of breath with exertion on an outpatient basis. She states walking to her mailbox she will become dyspneic. Patient's son also reports that the patient has had breast cancer twice. He states the first time she underwent a double mastectomy and refused radiation or chemotherapy at that time. Last year the patient had a recurrence of her breast cancer and had a surgical procedure to remove the "wound" per her son. She once again refused radiation or chemotherapy. The patient states that she did see a flarer last year in [place] before proceeding with her breast surgery. She denies any history of coronary artery disease or congestive heart failure. The patient's family states that she is very weak and they are interested in ECF at the time of discharge. DIAGNOSTICS: - EKG reveals atrial fibrillation with RVR. - Chest xray cardiomegaly and mild pulmonary vascular congestion. - Laboratory data: WBC 8.7. Hemoglobin 12.4. Platelet count 311. Sodium 135. Potassium 4.5. BUN 22. Creatinine 0.67. Magnesium 1.4. Troponin negative x 1. proBNP 7630. TSH 1.180. - Current home cardiac medications include warfarin 4 mg daily, irbesartan 300 mg daily, Toprol tartrate 100 mg twice a day, and hydrochlorothiazide 50 mg daily as needed. 12/22/2023 Patient examined this morning. Patient is sitting up in the chair. Patient states her breathing feels about the same as yesterday. She denies any chest pain or pressure. Patient remains in atrial fibrillation with controlled ventricular rate. Patient does go into RVR with ambulation. Echocardiogram completed revealing ejection fraction 40 to 45%, mild MS, mild MR, moderate TR, moderate pulmonary hypertension PHYSICAL EXAM: VITAL SIGNS: Reviewed. GENERAL: Well-developed in no acute distress. HEENT: Head is normocephalic. Pupils are equal, round. Sclerae anicteric. Mucous membranes of the mouth are moist. Neck supple. No JVD or thyromegaly LUNGS: Respirations even and unlabored. Lungs essentially clear to auscultation bilaterally. HEART: Tachycardic. Irregular rate and rhythm. S1 and S2 heard. ABDOMEN: Soft. Nondistended. Nontender. EXTREMITIES: Normal range of motion. No clubbing or cyanosis. Peripheral pulses intact. No lower extremity edema NEUROLOGIC: Awake and alert. Oriented x 3. ASSESSMENT: Atrial fibrillation with RVR, paroxysmal versus persistent Recent urinary tract infection, treated outpatient Altered mental status, resolved Subtherapeutic INR Hypertension Hyperlipidemia Diabetes History of CVA History of breast cancer with previous bilateral mastectomy Hypomagnesemia Moderate pulmonary hypertension Cardiomyopathy, EF 40 to 45%, ischemic versus nonischemic, duration unknown as no previous echo available for review Mild heart failure with reduced EF, proBNP 7630 PLAN: Patient has been transition from Coumadin to Eliquis Continue current dose of metoprolol Increase Cardizem to 60 mg twice a day Add oral Lasix 20 mg daily Continue telemetry monitoring Add Farxiga 10 mg daily Repeat BNP in AM Possible ECF at discharge. PT/OT have been consulted. Further recommendations pending patient course Nurse practitioner note has been reviewed by physician. Signing provider agrees with the documented findings, assessment, and plan of care documented by DIRECTOR GRAPHICS as a scribe. Objective - Vital Signs Vital signs: Vital Signs Temp 97.3 F L 12/22/23 11:47 Pulse 125 H 12/22/23 08:15 Resp 17 12/22/23 11:47 BP 130/86 12/22/23 11:47 Pulse Ox 94 L 12/22/23 11:47 FiO2 Intake & Output 12/21/23 12/22/23 12/22/23 18:59 06:59 18:59 Intake Total 338 358 Balance 338 358 Weight 89.4 kg Intake: Oral 338 358 Other: # Voids 1 1 - Labs CBC & Chem 7: 12/20/23 15:45 12/20/23 15:45 Labs: Abnormal Lab Results - Last 24 Hours (Table) 12/21/23 12/21/23 12/22/23 Range/Units 16:46 19:58 06:21 PT (10.0-12.5) sec INR (<1.2) POC Glucose (mg/dL) 273 H 243 H 123 H (70-110) mg/dL Hemoglobin A1c (<=6.0) % 12/22/23 12/22/23 12/22/23 Range/Units 06:49 06:49 11:38 PT 14.7 H (10.0-12.5) sec INR 1.4 H (<1.2) POC Glucose (mg/dL) 244 H (70-110) mg/dL Hemoglobin A1c 7.1 H (<=6.0) %
[2023-12-22 16:42] LABS: Glucose,Whole Blood 268 mg/dL (70-110)
[2023-12-22 20:18] LABS: Glucose,Whole Blood 123 mg/dL (70-110)
[2023-12-22] MEDS: DILTIAZEM ORAL 60 MG TAB PO SCH (20:59)
[2023-12-23 06:03] LABS: Glucose,Whole Blood 90 mg/dL (70-110)
[2023-12-23 06:25] LABS: Basophils # (A) 0.1 k/uL (0-0.2); Basophils % (A) 1 %; Eosinophils # (A) 0.3 k/uL (0-0.7); Eosinophils % (A) 4 %; HCT 41.6 % (34.0-46.0); HGB 13.6 gm/dL (11.4-16.0); Hypochromasia Moderate; Lymphocytes # (A) 2.3 k/uL (1.0-4.8); Lymphocytes % (A) 32 %; MCH 30.5 pg (25.0-35.0); MCHC 32.7 g/dL (31.0-37.0); MCV 93.3 fL (80.0-100.0); Mean Platelet Volume 8.8; Monocytes # (A) 0.6 k/uL (0-1.0); Monocytes % (A) 8 %; Neutrophils # (A) 3.6 k/uL (1.3-7.7); Neutrophils % (A) 52 %; Platelet Count 325 k/uL (150-450); RBC 4.46 m/uL (3.80-5.40); RDW 15.6 % (11.5-15.5)
[2023-12-23 06:41] LABS: ALT 25 U/L (4-34); AST 20 U/L (14-36); African American GFR (CKD) 65 (>60 ml/min/1.73 sqM); Albumin 3.6 g/dL (3.5-5.0); Alkaline Phosphatase 73 U/L (38-126); Anion Gap 10 mmol/L; Blood Urea Nitrogen 36 mg/dL (7-17); Calcium 9.5 mg/dL (8.4-10.2); Carbon Dioxide 27 mmol/L (22-30); Chloride 104 mmol/L (98-107); Glucose 82 mg/dL (74-99); Non-African American GFR(CKD) 56 (>60 ml/min/1.73 sqM); Potassium 3.9 mmol/L (3.5-5.1); Sodium 141 mmol/L (137-145); Total Bilirubin 0.8 mg/dL (0.2-1.3); Total Protein 6.7 g/dL (6.3-8.2)
[2023-12-23 06:49] LABS: NT-Pro-B-Type Natriuretic Pept 1140 pg/mL
--- NOTE | 2023-12-23 10:47 | P.PN ---
Subjective HISTORY OF PRESENT ILLNESS: This is a 78-year-old female with a past medical history significant for atrial fibrillation, hypertension, hyperlipidemia, diabetes, CVA, and breast cancer. Patient does not follow with a brick maker. We have been asked to see the patient in consultation for atrial fibrillation and congestive heart failure. Patient examined at the bedside. Patient's son is at the bedside and providing additional HPI. Patient was recently diagnosed with a urinary tract infection. He states that she has been getting more weak at home. She also has had some altered mental status. She denied any fever or chills. She reports having shortness of breath with exertion on an outpatient basis. She states walking to her mailbox she will become dyspneic. Patient's son also reports that the patient has had breast cancer twice. He states the first time she underwent a double mastectomy and refused radiation or chemotherapy at that time. Last year the patient had a recurrence of her breast cancer and had a surgical procedure to remove the "wound" per her son. She once again refused radiation or chemotherapy. The patient states that she did see a brick maker last year in [place] before proceeding with her breast surgery. She denies any history of coronary artery disease or congestive heart failure. The patient's family states that she is very weak and they are interested in ECF at the time of discharge. DIAGNOSTICS: - EKG reveals atrial fibrillation with RVR. - Chest xray cardiomegaly and mild pulmonary vascular congestion. - Laboratory data: WBC 8.7. Hemoglobin 12.4. Platelet count 311. Sodium 135. Potassium 4.5. BUN 22. Creatinine 0.67. Magnesium 1.4. Troponin negative x 1. proBNP 7630. TSH 1.180. - Current home cardiac medications include warfarin 4 mg daily, irbesartan 300 mg daily, Toprol tartrate 100 mg twice a day, and hydrochlorothiazide 50 mg daily as needed. 12/22/2023 Patient examined this morning. Patient is sitting up in the chair. Patient states her breathing feels about the same as yesterday. She denies any chest pain or pressure. Patient remains in atrial fibrillation with controlled ventricular rate. Patient does go into RVR with ambulation. Echocardiogram completed revealing ejection fraction 40 to 45%, mild MS, mild MR, moderate TR, moderate pulmonary hypertension 12/23/2023 Patient examined this morning. She is sitting up in the chair. Patient currently denies any chest pain or pressure. She denies any shortness of breath. Patient remains in atrial fibrillation with controlled ventricular rate. Per nursing, patient did have an episode of RVR with ambulation. Patient's blood pressures are elevated this morning. Patient has received her medications and nursing to recheck blood pressure shortly. PHYSICAL EXAM: VITAL SIGNS: Reviewed. GENERAL: Well-developed in no acute distress. HEENT: Head is normocephalic. Pupils are equal, round. Sclerae anicteric. Mucous membranes of the mouth are moist. Neck supple. No JVD or thyromegaly LUNGS: Respirations even and unlabored. Lungs essentially clear to auscultation bilaterally. HEART: Irregular rate and rhythm. S1 and S2 heard. ABDOMEN: Soft. Nondistended. Nontender. EXTREMITIES: Normal range of motion. No clubbing or cyanosis. Peripheral pulses intact. No lower extremity edema NEUROLOGIC: Awake and alert. Oriented x 3. ASSESSMENT: Atrial fibrillation with RVR, paroxysmal versus persistent Recent urinary tract infection, treated outpatient Altered mental status, resolved Subtherapeutic INR Hypertension Hyperlipidemia Diabetes History of CVA History of breast cancer with previous bilateral mastectomy Hypomagnesemia Moderate pulmonary hypertension Cardiomyopathy, EF 40 to 45%, ischemic versus nonischemic, duration unknown as no previous echo available for review Mild heart failure with reduced EF, proBNP 7630 PLAN: Patient has been transitioned from Coumadin to Eliquis Continue current dose of metoprolol Continue additional cardiac medications Continue telemetry monitoring Possible ECF at discharge. PT/OT have been consulted. Further recommendations pending patient course Nurse practitioner note has been reviewed by physician. Signing provider agrees with the documented findings, assessment, and plan of care documented by ELECTRICAL APPLIANCE SERVICER as a scribe. Objective - Vital Signs Vital signs: Vital Signs Temp 98.2 F 12/23/23 07:54 Pulse 102 H 12/23/23 07:54 Resp 16 12/23/23 07:54 BP 176/105 12/23/23 07:54 Pulse Ox 95 12/23/23 07:54 FiO2 Intake & Output 12/22/23 12/23/23 12/23/23 18:59 06:59 18:59 Intake Total 604 10 240 Balance 604 10 240 Weight 89.7 kg Intake: IV 10 10 Invasive Line 1 10 10 Oral 594 240 Other: # Voids 5 1 - Labs CBC & Chem 7: 12/23/23 05:38 12/23/23 05:38 Labs: Abnormal Lab Results - Last 24 Hours (Table) 12/22/23 12/22/23 12/22/23 Range/Units 11:38 16:40 20:17 RDW (11.5-15.5) % BUN (7-17) mg/dL POC Glucose (mg/dL) 244 H 268 H 123 H (70-110) mg/dL 12/23/23 12/23/23 Range/Units 05:38 05:38 RDW 15.6 H (11.5-15.5) % BUN 36 H (7-17) mg/dL POC Glucose (mg/dL) (70-110) mg/dL
[2023-12-23 11:16] LABS: Glucose,Whole Blood 208 mg/dL (70-110)
--- NOTE | 2023-12-23 11:25 | P.PN ---
Subjective Progress Note Date: 12/23/23 Viola Mckeon, is an 78-year-old female patient presents to ER with concerns ofincreased weakness. Records also indicate that patient has had increased confusion over the past year. Patient has poor historian no family present most history is obtained from medical record. According to records patient was recently treated for urinary tract infection. Patient has a past medical history of atrial fibrillation in which she is maintained on Coumadin, diabetes mellitus, breast cancer in 2019 status post bilateral mastectomy, and hypertension.EKG completed showing atrial fibrillation with rapid ventricular response and a heart rate of 137. Chest x-ray completed showing cardiomegaly and pulmonary vascular congestion. labwork revealing troponin 0.012, BNP 7630. UA was negative. This time patient is sitting in bed. Patient denies chest pain or shortness of breath. Patient denies nausea vomiting or diarrhea. Patient denies any urinary burning or frequency On 12/22/2023 patient was seen and examined on the medical floor, she is alert and oriented 3 in no apparent distress, there is no fever or chills no headache or dizziness no chest pain no shortness of breath no cough no nausea or vomiting no abdominal pain no diarrhea and no urinary symptoms. Vital examination reveals a temperature of 97.5 pulse 125 respiration 16 blood pressure 166/76 pulse ox 95% on room air On 12/23/2023 patient was seen and examined on the medical floor, she is alert however she was having episodes of confusion and mental status changes, she denies any symptoms at this time there is no fever or chills no headache or dizziness no chest pain no shortness of breath no cough no nausea or vomiting no abdominal pain no diarrhea no urinary symptoms. Family is very concerned about her episodes of confusion. Consultation for neurology and psychiatry were added. Objective - Vital Signs Vital signs: Vital Signs Temp 98.2 F 12/23/23 07:54 Pulse 102 H 12/23/23 07:54 Resp 16 12/23/23 07:54 BP 176/105 12/23/23 07:54 Pulse Ox 95 12/23/23 07:54 FiO2 Intake & Output 12/22/23 12/23/23 12/23/23 18:59 06:59 18:59 Intake Total 604 10 240 Balance 604 10 240 Weight 89.7 kg Intake: IV 10 10 Invasive Line 1 10 10 Oral 594 240 Other: # Voids 5 1 - Exam Head normocephalic Neck supple Lungs clear to auscultation bilaterally no wheezing or crackles Heart irregular heart rate known atrial fibrillation Abdomen is soft nontender nondistended positive bowel sounds no hepatosplenomegaly Extremities no edema Neuro alert and orientated to 3 - Labs CBC & Chem 7: 12/23/23 05:38 12/23/23 05:38 Labs: Abnormal Lab Results - Last 24 Hours (Table) 12/22/23 12/22/23 12/22/23 Range/Units 11:38 16:40 20:17 RDW (11.5-15.5) % BUN (7-17) mg/dL POC Glucose (mg/dL) 244 H 268 H 123 H (70-110) mg/dL 12/23/23 12/23/23 12/23/23 Range/Units 05:38 05:38 11:15 RDW 15.6 H (11.5-15.5) % BUN 36 H (7-17) mg/dL POC Glucose (mg/dL) 208 H (70-110) mg/dL Assessment and Plan Assessment: 1. Increased weakness 2. Atrial fibrillation with rapid ventricular response 3. History of atrial fibrillation maintained on Coumadin 4. Recent urinary tract infection. Patient was treated outpatient UA negative 5. History of diabetes mellitus type 2 6. History of essential hypertension 7. History of breast cancer in 2019 with double mastectomy DVT prophylaxis Coumadin. GI prophylaxis Pepcid Cardiology services consulted 2-D echo ordered Patient maintained on Cardizem drip PT OT and case management services consult for discharge planning Repeat labs ordered
--- NOTE | 2023-12-23 13:58 | P.CN ---
Psychiatric Consult - . Consult date: 12/23/23 Consult:: 12/23/23 13:08 IDENTIFYING DATA: This patient is a 78-year-old female, currently lives alone in a condo, she has 4 kids REASON FOR REFERRAL: Psychiatry was consulted for assess capacity HISTORY OF PRESENT ILLNESS: The patient presented to the hospital initially on 12/19 for confusion, weakness which has been going on for the past year or so, apparently patient came in with her son for similar complaints. Patient apparently was being treated for a UTI, urine analysis appeared to be clean. Patient also has a history of atrial fibrillation and CHF and admitted to the medical floors. Development Team Lead spoke with patient's nurse today, states that "the son has been concerned about her, states that she has been playing games with him and also believed that people were "rolling bodies out of the hospital" and was not fully oriented but only to name. Patient was seen at the bedside agreeable to speak to scientific technical writer, she was fairly calm and attempting to cooperate. Patient did state her name and her age however she does not know today's date and believes that it was "2003" and confabulated about where she is currently however does know she has that she is in a hospital. Patient was perseverating on certain details during the conversation, she claims that she came into the hospital due to "bowel issues". She claims that she has a "[employer]" that helps her in the hospital and also at home and comes in and helps her with cooking and cleaning. She appears to have fairly limited insight and judgment. This appears to be fairly chronic. Denies any problems with mood or anxiety at this time. States that her sleep has been on and off, appetite has been fair, she was able to only recall 1 out of 3 words after 5 minutes, has poor memory, she has trouble with attention span as well. At this time patient denies any suicidal or homical ideations, intent or plan. Patient denies any auditory, visual hallucinations and denies any paranoia or delusions. Patients admits to using no recreational drugs or cigarettes PAST PSYCHIATRIC HISTORY: Patient has no known psychiatric history. Patient denies being on any psychiatric medications. Patient denies any previous psychiatric hospitalizations. Patient denies any psychiatric outpatient follow- up. Patient denies any history of suicide attempts in the past. Past Medical History: Atrial Fibrillation, Cancer, Diabetes Mellitus, Hyperte nsion Additional Past Medical History / Comment(s): Breast cancer 2019 History of Any Multi-Drug Resistant Organisms: None Reported Past Surgical History: Breast Surgery, Cholecystectomy Additional Past Surgical History / Comment(s): Double masectomy 2019 Past Psychological History: No Psychological Hx Reported Smoking Status: Never smoker Past Alcohol Use History: None Reported Past Drug Use History: None Reported ALLERGIES: as per EMR. CHEMICAL DEPENDENCY HISTORY: as per HPI. FAMILY PSYCHIATRIC/SUBSTANCE USE HISTORY: That her son has PTSD SOCIAL HISTORY: Patient was born and raised in [facility], states that she currently lives in [place] in a condo. States that she has 4 kids, she lives alone at this time. 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 MENTAL STATUS EXAM: General Appearance: Patient appears to be mildly overweight, short hair, wearing glasses stated age is alert, pleasant, and attempts to be cooperative. Patient appears to have fair hygiene and grooming wearing hospital gown with fair eye contact. Behavior: Patient is calmly lying in bed without any agitated behavior. Attempts to cooperate, bizarre statements at times Speech: Patient's speech is fluent and nonpressured. Perseverating at times, confabulating Mood/Affect: Patient reports their mood is "ok", affect is congruent Suicidality/Homicidality: Patient denies having any suicidal or homicidal ideation intent or plan. Perceptions: Patient denies any visual hallucinations and denies any auditory hallucinations Though content/process: There is no evidence of any delusional thought content and thought process is linear and goal-directed. Confabulates, perseverating at times Memory and concentration: AOX3, grossly intact for the purposes of this session. Can spell "WORLD" backwards Judgment and insight: Chronically limited IMPRESSIONS: Neurocognitive disorder, mild Likely having episodes of delirium, possibly secondary to UTI PLAN: -At this time patient DOES NOT meet criteria for inpatient psychiatric admission. -Patient DOES NOT have decision making capacity at this time and is unable to reason through and communicate/appreciate the risks, benefits and alternatives to treatment. -Delirium precautions recommended with patient including - avoiding use of narcotics and INSTALL AND REPAIR TECHNICIAN sedatives, limit anticholinergic medications when possible, frequent re-orientation, minimize use of restraints, open window shades during the day and close them at night -Would recommend the following medication changes/additions: Will start m elatonin 3 mg nightly for sleep, Seroquel 12.5 mg twice daily as needed for agitation/psychosis associated with delirium -facility maintenance worker to provide patient with outpatient mental health/psychiatry sergioo britney for appropriate follow up upon discharge -Communicated plan to patient's nurse -please consider obtaining gaurdianship to help with decision making and also with obtaining safe placement option with adequate resources. -Psychiatry will sign off at this time -Please contact with any questions. 12/23/23 13:52
[2023-12-23] MEDS ORDERED: QUEtiapine 25 MG TAB PO PRN (13:59)
[2023-12-23 16:24] LABS: Glucose,Whole Blood 168 mg/dL (70-110)
[2023-12-23 20:07] LABS: Glucose,Whole Blood 112 mg/dL (70-110)
[2023-12-23] MEDS: MELATONIN 3 MG TABLET PO SCH (20:38)
[2023-12-24 06:00] LABS: Glucose,Whole Blood 95 mg/dL (70-110)
[2023-12-24 11:08] LABS: Glucose,Whole Blood 263 mg/dL (70-110)
[2023-12-24 12:00] LABS: Basophils % (A) 0 %; Eosinophils # (A) 0.4 k/uL (0-0.7); Eosinophils % (A) 5 %; HCT 44.1 % (34.0-46.0); HGB 13.6 gm/dL (11.4-16.0); Hypochromasia Slight; Lymphocytes # (A) 2.5 k/uL (1.0-4.8); Lymphocytes % (A) 30 %; MCH 28.1 pg (25.0-35.0); MCHC 30.8 g/dL (31.0-37.0); MCV 91.3 fL (80.0-100.0); Mean Platelet Volume 9.1; Monocytes # (A) 0.6 k/uL (0-1.0); Monocytes % (A) 8 %; Neutrophils # (A) 4.4 k/uL (1.3-7.7); Neutrophils % (A) 55 %; Platelet Count 490 k/uL (150-450); RBC 4.84 m/uL (3.80-5.40); RDW 15.5 % (11.5-15.5); WBC 8.1 k/uL (3.8-10.6)
[2023-12-24 12:06] LABS: ALT 23 U/L (4-34); AST 21 U/L (14-36); African American GFR (CKD) 71 (>60 ml/min/1.73 sqM); Alkaline Phosphatase 81 U/L (38-126); Anion Gap 11 mmol/L; Blood Urea Nitrogen 33 mg/dL (7-17); Calcium 9.8 mg/dL (8.4-10.2); Carbon Dioxide 26 mmol/L (22-30); Chloride 102 mmol/L (98-107); Glucose 243 mg/dL (74-99); Non-African American GFR(CKD) 61 (>60 ml/min/1.73 sqM); Potassium 4.5 mmol/L (3.5-5.1); Sodium 139 mmol/L (137-145); Total Bilirubin 0.7 mg/dL (0.2-1.3); Total Protein 7.4 g/dL (6.3-8.2)
--- NOTE | 2023-12-24 12:10 | CDI ---
Documentation Clarification Form Date: 12/24/2023 11:47:59 AM From: Renata Echols RN CCDS Phone: [phone] Admit Date: 12/20/2023 05:09:00 PM Patient Name: Viola Mckeon Visit Number: [id number] Discharge Date: ATTENTION: The Clinical Documentation Specialists (CDI) and [facility] Coding Staff appreciate your assistance in clarifying documentation. Please respond to the clarification below the line at the bottom and electronically sign. The CDI & [facility] Coding staff will review the response and follow-up if needed. Please note: Queries are made part of the Legal Health Record. If you have any questions, please contact the author of this message via ITS. Dr. Reyna Huber Your patient has the documented diagnosis of Mild systolic CHF, cardiology note, 12/21. Additional information regarding the acuity of Systolic CHF is requested. History/Risk Factors: 78-year-old female presents to the ED with confusion and increased weakness, accompanied by her son. Medical history: CVA, DM, HTN, HLD, CAD, Breast cancer; CHF and Atrial Fibrillation. 12/19, ED note. Clinical Indicators: VS/Pulse OX, 12/19: B/P 202/124; HR 124; Temp 98.3Foral; RR 18 SpO2 91 % ra BNP, 12/20: 7630 Echocardiogram Results, 12/20: Mildly dilated LV. The LV systolic function is impaired at 40-45%. Mild to moderate mitral regurgitation and mild mitral stenosis. Moderate pulmonary hypertension. Enlarged right ventricle with mildly reduced function. Moderate tricuspid regurgitation. Chest X Ray, 12/19: Cardiomegaly and mild pulmonary vascular congestion. Treatment: 12/19 Lasix 40mg IV x1; 12/21 Lasix 20mg PO Daily; 12/20 Cozaar 100mg PO Daily; 12/20 Lopressor 100mg PO Bid In your professional opinion, can you please clarify the acuity and of Systolic CHF if known? [ ] Acute on Chronic Systolic Heart Failure (reduced EF) [ ] Other, please specify [ ] Unable to determine Not sure what needs to be clarified here....if she had a hx of CHF, I would have documented acute on chronic but she doesnt....so the diagnosis is mild heart failure with reduced EF as I have charted (systolic/diastolic is old terminology. Proper terminology for heart failure is preserved EF, reduced EF, or mildly reduced EF)... Additionally, in the HPI I specifically charted that the patient does not have a history of heart failure. There is nothing in my documentation that needs to be clarified. Thank you. (Template Last Revised: September 2020) KHADIJAH
--- NOTE | 2023-12-24 14:12 | P.CNNES ---
History of Present Illness Consult date: 12/24/23 Requesting physician: Amarjit Wood Reason for Consult[place] [facility] [place] Illness: This is an 78 year-old woman who presents to the ED because of confusion and weakness. Patient stated she had UTI last week and was told she was confusion but her confusion has resolved. She denies history of seizures in the past. She denies of any focal weakness, visual disturbance, speech difficulty. Her UTI has cleared up. She does have underlying history of stroke in the past. Some of the work-up consisted of: Wbc is normal. HbA1c: 7.1 TSH: 1.180 I reviewed rest of lab work-up. Review of Systems The positive and negative as per HPI. Past Medical History Past Medical History: Atrial Fibrillation, Cancer, Diabetes Mellitus, Hyperten renea Additional Past Medical History / Comment(s): Breast cancer 2019 History of Any Multi-Drug Resistant Organisms: None Reported Past Surgical History: Breast Surgery, Cholecystectomy Additional Past Surgical History / Comment(s): Double masectomy 2019 Past Anesthesia/Blood Transfusion Reactions: No Reported Reaction Past Psychological History: No Psychological Hx Reported Smoking Status: Never smoker Past Alcohol Use History: None Reported Past Drug Use History: None Reported Medications and Allergies Home Medications Medication Instructions Recorded Confirmed Type Insulin Glargine [Lantus Vial] 25 unit SQ DAILY@1200 12/20/23 12/20/23 History Irbesartan 300 mg PO DAILY 12/20/23 12/20/23 History Metoprolol Tartrate [Lopressor] 100 mg PO BID 12/20/23 12/20/23 History Sulfamethox-Tmp 800-160Mg [Bactrim 1 tab PO BID 12/20/23 12/20/23 History DS 800-160 mg] Warfarin Sodium 4 mg PO DAILY 12/20/23 12/20/23 History hydroCHLOROthiazide [Hydrodiuril] 50 mg PO DAILY PRN 12/20/23 12/20/23 History metFORMIN HCL 1,000 mg PO BID 12/20/23 12/20/23 History sitaGLIPtin [Januvia] 100 mg PO DAILY 12/20/23 12/20/23 History Allergies Allergy/AdvReac Type Severity Reaction Status Date / Time No Known Allergies Allergy Verified 12/20/23 15:57 Physical Examination - Vital Signs Vital Signs: Vital Signs Temp Pulse Pulse Resp BP Pulse Ox 12/24/23 12:46 89 150 H 12/24/23 08:00 98.2 F 89 150 H 18 152/97 95 12/24/23 04:00 97.5 F L 78 18 168/77 94 L 12/24/23 02:00 89 66 16 12/24/23 00:00 98 F 66 16 122/57 97 12/23/23 20:00 97.8 F 97 16 136/89 97 12/23/23 16:00 97.6 F 90 17 163/79 98 Intake and Output 12/23/23 12/24/23 12/24/23 22:59 06:59 14:59 Intake Total 110 460 Output Total 250 300 Balance -140 -300 460 Intake: Oral 110 460 Output: Urine 250 300 Other: # Voids 1 1 Weight 89.9 kg General: Sitting in a recliner chair and is not in acute distress. Neuro: The patient is awake, alert, oriented to self, place. She stated the year is 2003 and month is . She correctly stated the current stated and country and capital of both. She name objects correctly (pen and watch). Is following simple commands. No aphasia or neglect. Pupils are round, equal and reactive to light bilaterally. Visual [place] are full to confrontation. EOM intact and no nystagmus. Normal facial sensation to touch. No facial weakness. No dysarthria. Is moderate to severe hearing loss to hand rub bilaterally. Motor: Gait is normal. Strength is 5/5 throughout. Sensation is normal. Reflex: 1+ Extremities: Has edema in lowers. Results - Laboratory Findings CBC and BMP: 12/24/23 10:46 12/24/23 10:46 Abnormal Lab Findings: Abnormal Labs 12/20/23 12/20/23 12/20/23 15:45 15:45 15:45 MCHC RDW 15.8 H Plt Count PT 17.3 H INR 1.7 H APTT 32.8 H Sodium 135 L BUN 22 H Glucose 203 H POC Glucose (mg/dL) Hemoglobin A1c Magnesium 1.3 L AST 47 H ALT 39 H Urine Protein Urine Ketones 12/20/23 12/20/23 12/21/23 15:51 16:51 09:22 MCHC RDW Plt Count PT 21.8 H INR 2.2 H APTT Sodium BUN Glucose POC Glucose (mg/dL) 209 H Hemoglobin A1c Magnesium AST ALT Urine Protein Trace H Urine Ketones 1+ H 12/21/23 12/21/23 12/21/23 09:22 16:46 19:58 MCHC RDW Plt Count PT INR APTT Sodium BUN Glucose POC Glucose (mg/dL) 273 H 243 H Hemoglobin A1c Magnesium 1.4 L AST ALT Urine Protein Urine Ketones 12/22/23 12/22/23 12/22/23 06:21 06:49 06:49 MCHC RDW Plt Count PT 14.7 H INR 1.4 H APTT Sodium BUN Glucose POC Glucose (mg/dL) 123 H Hemoglobin A1c 7.1 H Magnesium AST ALT Urine Protein Urine Ketones 12/22/23 12/22/23 12/22/23 11:38 16:40 20:17 MCHC RDW Plt Count PT INR APTT Sodium BUN Glucose POC Glucose (mg/dL) 244 H 268 H 123 H Hemoglobin A1c Magnesium AST ALT Urine Protein Urine Ketones 12/23/23 12/23/23 12/23/23 05:38 05:38 11:15 MCHC RDW 15.6 H Plt Count PT INR APTT Sodium BUN 36 H Glucose POC Glucose (mg/dL) 208 H Hemoglobin A1c Magnesium AST ALT Urine Protein Urine Ketones 12/23/23 12/23/23 12/24/23 16:21 20:06 10:46 MCHC 30.8 L RDW Plt Count 490 H PT INR APTT Sodium BUN Glucose POC Glucose (mg/dL) 168 H 112 H Hemoglobin A1c Magnesium AST ALT Urine Protein Urine Ketones 12/24/23 12/24/23 10:46 11:05 MCHC RDW Plt Count PT INR APTT Sodium BUN 33 H Glucose 243 H POC Glucose (mg/dL) 263 H Hemoglobin A1c Magnesium AST ALT Urine Protein Urine Ketones Assessment and Plan Assessment: This is an 78-year-old woman with recent UTI and had confusion. Currently confusion is drastically better and feels is doing better. Acute delirium due to acute UTI---drastic improvement. Recent UTI History of stroke Diabetes mellitius Plan: I ordered ammonia level, Vitamin B12 and folate. Ordered CT head. Recommend the patient to follow-up with a neurologist as outpatient and recommend a neuropsych evaluation as outpatient for memory testing. Psychiatry is consulted. Will defer the rest of medical management to the primary team. Thank you for the consultation. If labs and CT ordered above are normal and no acute change on CT then patient is clear from neurological perspective. Time with Patient: Greater than 30
[2023-12-24 16:38] LABS: Glucose,Whole Blood 179 mg/dL (70-110)
--- NOTE | 2023-12-24 17:48 | P.PN ---
Subjective Progress Note Date: 12/24/23 Viola Mckeon, is an 78-year-old female patient presents to ER with concerns ofincreased weakness. Records also indicate that patient has had increased confusion over the past year. Patient has poor historian no family present most history is obtained from medical record. According to records patient was recently treated for urinary tract infection. Patient has a past medical history of atrial fibrillation in which she is maintained on Coumadin, diabetes mellitus, breast cancer in 2019 status post bilateral mastectomy, and hypertension.EKG completed showing atrial fibrillation with rapid ventricular response and a heart rate of 137. Chest x-ray completed showing cardiomegaly and pulmonary vascular congestion. labwork revealing troponin 0.012, BNP 7630. UA was negative. This time patient is sitting in bed. Patient denies chest pain or shortness of breath. Patient denies nausea vomiting or diarrhea. Patient denies any urinary burning or frequency On 12/22/2023 patient was seen and examined on the medical floor, she is alert and oriented 3 in no apparent distress, there is no fever or chills no headache or dizziness no chest pain no shortness of breath no cough no nausea or vomiting no abdominal pain no diarrhea and no urinary symptoms. Vital examination reveals a temperature of 97.5 pulse 125 respiration 16 blood pressure 166/76 pulse ox 95% on room air On 12/23/2023 patient was seen and examined on the medical floor, she is alert however she was having episodes of confusion and mental status changes, she denies any symptoms at this time there is no fever or chills no headache or dizziness no chest pain no shortness of breath no cough no nausea or vomiting no abdominal pain no diarrhea no urinary symptoms. Family is very concerned about her episodes of confusion. Consultation for neurology and psychiatry were added. On 12/24/2023 patient was seen and examined on the medical floor she is alert and oriented at this time in no apparent distress there is no fever or chills no headache or dizziness no chest pain no shortness of breath no cough no nausea or vomiting no abdominal pain no diarrhea and no urinary symptoms. Patient was having episodes of confusion, neurology consultation and psychiatry consultation were requested, computed tomography scan of the brain was ordered, will continue to follow closely. Objective - Vital Signs Vital signs: Vital Signs Temp 98.2 F 12/24/23 08:00 Pulse 150 H 05/06/24 08:00 Resp 18 12/24/23 08:00 BP 152/97 12/24/23 08:00 Pulse Ox 95 12/24/23 08:00 FiO2 Intake & Output 12/23/23 12/24/23 12/24/23 18:59 06:59 18:59 Intake Total 460 350 Output Total 550 Balance 460 -550 350 Weight 89.9 kg Intake: Oral 460 350 Output: Urine 550 Other: # Voids 4 1 - Exam Head normocephalic Neck supple Lungs clear to auscultation bilaterally no wheezing or crackles Heart irregular heart rate known atrial fibrillation Abdomen is soft nontender nondistended positive bowel sounds no hepatosplenomegaly Extremities no edema Neuro alert and orientated to 3 - Labs CBC & Chem 7: 12/24/23 10:46 12/24/23 10:46 Labs: Abnormal Lab Results - Last 24 Hours (Table) 12/23/23 12/23/23 12/23/23 Range/Units 11:15 16:21 20:06 POC Glucose (mg/dL) 208 H 168 H 112 H (70-110) mg/dL Assessment and Plan Assessment: 1. Increased weakness 2. Atrial fibrillation with rapid ventricular response 3. History of atrial fibrillation maintained on Coumadin 4. Recent urinary tract infection. Patient was treated outpatient UA negative 5. History of diabetes mellitus type 2 6. History of essential hypertension 7. History of breast cancer in 2019 with double mastectomy DVT prophylaxis Coumadin. GI prophylaxis Pepcid Cardiology services consulted 2-D echo ordered Patient maintained on Cardizem drip PT OT and case management services consult for discharge planning Repeat labs ordered
--- NOTE | 2023-12-24 18:07 | CT ---
EXAMINATION TYPE: CT brain wo con DATE OF EXAM: 12/24/2023 COMPARISON: None HISTORY: confusion CT DLP: 1153 mGycm Automated exposure control for dose reduction was used. FINDINGS: The ventricles, basal cisterns and sulci convexities are within normal limits for the patient's age. There is a moderate focal area of decreased density involving the left parietal cortex and subcortica l white matter consistent with subacute to chronic infarct. There is a small to moderate wedge-shaped chronic infarct in the left cerebellum. Third small focal area of decreased density involving the cortex and subcortical white matter in the posterior left frontal lobe is consistent with a subacute to chronic infarct. There is no acute bleed or mass effect. Intraorbital contents appear normal symmetric. Visualized paranasal sinuses and mastoid air cells are well aerated. IMPRESSION: 1. No acute bleed or mass effect. 2. 3 focal cortical and subcortical infarcts involving the left cerebellum, left frontal lobe and lef t parietal lobe. Based on variable density, the left frontal and left parietal infarcts are subacute to chronic. The left cerebellar infarct is clearly remote.
--- NOTE | 2023-12-24 18:38 | P.PN ---
Subjective HISTORY OF PRESENT ILLNESS: This is a 78-year-old female with a past medical history significant for atrial fibrillation, hypertension, hyperlipidemia, diabetes, CVA, and breast cancer. Patient does not follow with a color maker. We have been asked to see the patient in consultation for atrial fibrillation and congestive heart failure. Patient examined at the bedside. Patient's son is at the bedside and providing additional HPI. Patient was recently diagnosed with a urinary tract infection. He states that she has been getting more weak at home. She also has had some altered mental status. She denied any fever or chills. She reports having shortness of breath with exertion on an outpatient basis. She states walking to her mailbox she will become dyspneic. Patient's son also reports that the patient has had breast cancer twice. He states the first time she underwent a double mastectomy and refused radiation or chemotherapy at that time. Last year the patient had a recurrence of her breast cancer and had a surgical procedure to remove the "wound" per her son. She once again refused radiation or chemotherapy. The patient states that she did see a color maker last year in [place] before proceeding with her breast surgery. She denies any history of coronary artery disease or congestive heart failure. The patient's family states that she is very weak and they are interested in ECF at the time of discharge. DIAGNOSTICS: - EKG reveals atrial fibrillation with RVR. - Chest xray cardiomegaly and mild pulmonary vascular congestion. - Laboratory data: WBC 8.7. Hemoglobin 12.4. Platelet count 311. Sodium 135. Potassium 4.5. BUN 22. Creatinine 0.67. Magnesium 1.4. Troponin negative x 1. proBNP 7630. TSH 1.180. - Current home cardiac medications include warfarin 4 mg daily, irbesartan 300 mg daily, Toprol tartrate 100 mg twice a day, and hydrochlorothiazide 50 mg daily as needed. 12/22/2023 Patient examined this morning. Patient is sitting up in the chair. Patient states her breathing feels about the same as yesterday. She denies any chest pain or pressure. Patient remains in atrial fibrillation with controlled ventricular rate. Patient does go into RVR with ambulation. Echocardiogram completed revealing ejection fraction 40 to 45%, mild MS, mild MR, moderate TR, moderate pulmonary hypertension 12/23/2023 Patient examined this morning. She is sitting up in the chair. Patient currently denies any chest pain or pressure. She denies any shortness of breath. Patient remains in atrial fibrillation with controlled ventricular rate. Per nursing, patient did have an episode of RVR with ambulation. Patient's blood pressures are elevated this morning. Patient has received her medications and nursing to recheck blood pressure shortly. 12/23 patient seen and examined. Patient denies any chest pain or pressure. States her breathing is stable. PHYSICAL EXAM: VITAL SIGNS: Reviewed. GENERAL: Well-developed in no acute distress. HEENT: Head is normocephalic. Pupils are equal, round. Sclerae anicteric. Mucous membranes of the mouth are moist. Neck supple. No JVD or thyromegaly LUNGS: Respirations even and unlabored. Lungs essentially clear to auscultation bilaterally. HEART: Irregular rate and rhythm. S1 and S2 heard. ABDOMEN: Soft. Nondistended. Nontender. EXTREMITIES: Normal range of motion. No clubbing or cyanosis. Peripheral pulses intact. No lower extremity edema NEUROLOGIC: Awake and alert. Oriented x 3. ASSESSMENT: Atrial fibrillation with RVR, paroxysmal versus persistent Recent urinary tract infection, treated outpatient Altered mental status, resolved Subtherapeutic INR Hypertension Hyperlipidemia Diabetes History of CVA History of breast cancer with previous bilateral mastectomy Hypomagnesemia Moderate pulmonary hypertension Cardiomyopathy, EF 40 to 45%, ischemic versus nonischemic, duration unknown as no previous echo available for review Mild heart failure with reduced EF, proBNP 7630 PLAN: Patient has been transitioned from Coumadin to Eliquis Continue current dose of metoprolol Continue additional cardiac medications Continue telemetry monitoring patient appears stable for discharge home/ rehab from a cardiac standpoint. Further recommendations pending patient course Objective - Vital Signs Vital signs: Vital Signs Temp 98.1 F 12/24/23 16:00 Pulse 84 12/24/23 16:00 Resp 18 12/24/23 16:00 BP 149/74 12/24/23 16:00 Pulse Ox 96 12/24/23 16:00 FiO2 Intake & Output 12/23/23 12/24/23 12/24/23 18:59 06:59 18:59 Intake Total 460 570 Output Total 550 Balance 460 -550 570 Weight 89.9 kg Intake: Oral 460 570 Output: Urine 550 Other: # Voids 4 1 - Labs CBC & Chem 7: 12/24/23 10:46 12/24/23 10:46 Labs: Abnormal Lab Results - Last 24 Hours (Table) 12/23/23 12/24/23 12/24/23 Range/Units 20:06 10:46 10:46 MCHC 30.8 L (31.0-37.0) g/dL Plt Count 490 H (150-450) k/uL BUN 33 H (7-17) mg/dL Glucose 243 H (74-99) mg/dL POC Glucose (mg/dL) 112 H (70-110) mg/dL 12/24/23 12/24/23 Range/Units 11:05 16:36 MCHC (31.0-37.0) g/dL Plt Count (150-450) k/uL BUN (7-17) mg/dL Glucose (74-99) mg/dL POC Glucose (mg/dL) 263 H 179 H (70-110) mg/dL
[2023-12-24 20:15] LABS: Glucose,Whole Blood 176 mg/dL (70-110)
[2023-12-25 06:16] LABS: Glucose,Whole Blood 83 mg/dL (70-110)
[2023-12-25 09:05] LABS: Basophils # (A) 0.1 k/uL (0-0.2); Basophils % (A) 1 %; Eosinophils # (A) 0.5 k/uL (0-0.7); Eosinophils % (A) 5 %; HCT 41.4 % (34.0-46.0); HGB 12.9 gm/dL (11.4-16.0); Lymphocytes # (A) 3.2 k/uL (1.0-4.8); Lymphocytes % (A) 37 %; MCH 28.5 pg (25.0-35.0); MCHC 31.2 g/dL (31.0-37.0); MCV 91.3 fL (80.0-100.0); Mean Platelet Volume 8.3; Monocytes # (A) 0.5 k/uL (0-1.0); Monocytes % (A) 6 %; Neutrophils # (A) 4.2 k/uL (1.3-7.7); Neutrophils % (A) 49 %; Platelet Count 459 k/uL (150-450); RBC 4.53 m/uL (3.80-5.40); RDW 15.3 % (11.5-15.5); WBC 8.7 k/uL (3.8-10.6)
[2023-12-25 09:17] LABS: ALT 23 U/L (4-34); African American GFR (CKD) 83 (>60 ml/min/1.73 sqM); Albumin 3.8 g/dL (3.5-5.0); Anion Gap 8 mmol/L; Blood Urea Nitrogen 32 mg/dL (7-17); Calcium 9.3 mg/dL (8.4-10.2); Carbon Dioxide 26 mmol/L (22-30); Chloride 104 mmol/L (98-107); Glucose 184 mg/dL (74-99); Non-African American GFR(CKD) 72 (>60 ml/min/1.73 sqM); Sodium 138 mmol/L (137-145); Total Bilirubin 0.8 mg/dL (0.2-1.3)
--- NOTE | 2023-12-25 09:17 | P.PN ---
Subjective Progress Note Date: 12/25/23 Viola Mckeon, is an 78-year-old female patient presents to ER with concerns ofincreased weakness. Records also indicate that patient has had increased confusion over the past year. Patient has poor historian no family present most history is obtained from medical record. According to records patient was recently treated for urinary tract infection. Patient has a past medical history of atrial fibrillation in which she is maintained on Coumadin, diabetes mellitus, breast cancer in 2019 status post bilateral mastectomy, and hypertension.EKG completed showing atrial fibrillation with rapid ventricular response and a heart rate of 137. Chest x-ray completed showing cardiomegaly and pulmonary vascular congestion. labwork revealing troponin 0.012, BNP 7630. UA was negative. This time patient is sitting in bed. Patient denies chest pain or shortness of breath. Patient denies nausea vomiting or diarrhea. Patient denies any urinary burning or frequency On 12/22/2023 patient was seen and examined on the medical floor, she is alert and oriented 3 in no apparent distress, there is no fever or chills no headache or dizziness no chest pain no shortness of breath no cough no nausea or vomiting no abdominal pain no diarrhea and no urinary symptoms. Vital examination reveals a temperature of 97.5 pulse 125 respiration 16 blood pressure 166/76 pulse ox 95% on room air On 12/23/2023 patient was seen and examined on the medical floor, she is alert however she was having episodes of confusion and mental status changes, she denies any symptoms at this time there is no fever or chills no headache or dizziness no chest pain no shortness of breath no cough no nausea or vomiting no abdominal pain no diarrhea no urinary symptoms. Family is very concerned about her episodes of confusion. Consultation for neurology and psychiatry were added. On 12/24/2023 patient was seen and examined on the medical floor she is alert and oriented at this time in no apparent distress there is no fever or chills no headache or dizziness no chest pain no shortness of breath no cough no nausea or vomiting no abdominal pain no diarrhea and no urinary symptoms. Patient was having episodes of confusion, neurology consultation and psychiatry consultation were requested, computed tomography scan of the brain was ordered, will continue to follow closely. on 12/25/2023 patient is alert and oriented sitting comfortably in chair. CT completed yesterday showing no acute bleed or mass effect. 3 focal cortical and subcortical infarcts involving the left cerebellum left frontal lobe and left periorbital lobe. Based on variable density of the left frontal and left. Old infarcts are subacute to chronic the left cerebral infract is clearly remote. Awaiting further recommendations from neurology services Objective - Vital Signs Vital signs: Vital Signs Temp 97.6 F 12/25/23 04:00 Pulse 79 12/25/23 04:00 Resp 16 12/25/23 04:00 BP 185/96 12/25/23 04:00 Pulse Ox 95 12/25/23 04:00 FiO2 Intake & Output 12/24/23 12/25/23 12/25/23 18:59 06:59 18:59 Intake Total 570 10 340 Balance 570 10 340 Intake: IV 10 Invasive Line 1 10 Oral 570 340 Other: Voiding Method Toilet # Voids 1 1 # Bowel Movements 1 - Exam Head normocephalic Neck supple Lungs clear to auscultation bilaterally no wheezing or crackles Heart irregular heart rate known atrial fibrillation Abdomen is soft nontender nondistended positive bowel sounds no hepatosplenomegaly Extremities no edema Neuro alert and orientated to 3 - Labs CBC & Chem 7: 12/25/23 08:48 12/24/23 10:46 Labs: Abnormal Lab Results - Last 24 Hours (Table) 12/24/23 12/24/23 12/24/23 Range/Units 10:46 10:46 11:05 MCHC 30.8 L (31.0-37.0) g/dL Plt Count 490 H (150-450) k/uL BUN 33 H (7-17) mg/dL Glucose 243 H (74-99) mg/dL POC Glucose (mg/dL) 263 H (70-110) mg/dL Vitamin B12 (200.0-944.0) pg/mL 12/24/23 12/24/23 12/24/23 Range/Units 15:49 16:36 20:14 MCHC (31.0-37.0) g/dL Plt Count (150-450) k/uL BUN (7-17) mg/dL Glucose (74-99) mg/dL POC Glucose (mg/dL) 179 H 176 H (70-110) mg/dL Vitamin B12 195.0 L (200.0-944.0) pg/mL 12/25/23 Range/Units 08:48 MCHC (31.0-37.0) g/dL Plt Count 459 H (150-450) k/uL BUN (7-17) mg/dL Glucose (74-99) mg/dL POC Glucose (mg/dL) (70-110) mg/dL Vitamin B12 (200.0-944.0) pg/mL Assessment and Plan Assessment: 1. Increased weakness 2. Atrial fibrillation with rapid ventricular response 3. History of atrial fibrillation maintained on Coumadin 4. Recent urinary tract infection. Patient was treated outpatient UA negative 5. History of diabetes mellitus type 2 6. History of essential hypertension 7. History of breast cancer in 2019 with double mastectomy 8. Altered mental status changes DVT prophylaxis Coumadin. GI prophylaxis Pepcid Cardiology services consulted head CT completed PT OT and case management services consult for discharge planning Repeat labs ordered
[2023-12-25 09:21] LABS: AST 28 U/L (14-36); Alkaline Phosphatase 78 U/L (38-126); Potassium 4.8 mmol/L (3.5-5.1)
[2023-12-25 11:52] LABS: Glucose,Whole Blood 151 mg/dL (70-110)
--- NOTE | 2023-12-25 13:48 | US ---
EXAMINATION TYPE: US carotid duplex BILAT DATE OF EXAM: 12/25/2023 COMPARISON: NONE CLINICAL INDICATION: Female, 78 years old with history of stroke; Stroke per order. TECHNIQUE: Carotid duplex ultrasound examination. Indirect Doppler criteria was utilized. FINDINGS: EXAM MEASUREMENTS: RIGHT: Peak Systolic Velocity (PSV) cm/sec ----- Right CCA: 44.2 ----- Right ICA: 101.8 ----- Right ECA: 64.5 ICA/CCA ratio: 2.3 RIGHT: End Diastole cm/sec ----- Right CCA: 9.1 ----- Right ICA: 23.7 ----- Right ECA: 0.0 LEFT: Peak Systolic Velocity (PSV) cm/sec ----- Left CCA: 44.1 ----- Left ICA: 61.6 ----- Left ECA: 51.3 ICA/CCA ratio: 1.4 LEFT: End Diastole cm/sec ----- Left CCA: 7.8 ----- Left ICA: 9.7 ----- Left ECA: 0.0 VERTEBRALS (direction of flow): Right Vertebral: Antegrade Left Vertebral: Antegrade Rhythm: Arrhythmia TACKER OFF NOTES: Intimal thickening seen within bilateral carotid systems. No elevated velocities a t this time. Plaque seen within bilateral bulbs. ICA/CCA ratio on the right was 2.3. IMPRESSION: Less than 50% stenosis of the carotid bifurcations. Criteria for Assigning % of Stenosis / Diameter reduction (Estimation based on the indirect measurements of the internal carotid artery velocities (ICA PSV). 1. Normal (no stenosis)=ICA PSV < 125 cm/s: ratio < 2.0: ICA EDV<40 cm/s. 2. Less than 50% stenosis=ICA PSV < 125 cm/s: ratio < 2.0: ICA EDV<40 cm/s. 3. 50 to 69% stenosis=ICA PSV of 125 to 230 cm/s: ration 2.0 ? 4.0: ICA EDV 40-100 cm/s. 4. Greater than 70% stenosis to near occlusion= ICA PSV > 230 cm/s: ratio > 4.0: ICA EDV > 100 cm/s. 5. Near occlusion= ICA PSV velocities may be low or undetectable: variable ratio and ICA EDV. 6. Total occlusion=unable to detect flow.
--- NOTE | 2023-12-25 15:13 | P.PN ---
Subjective Progress Note Date: 12/25/23 I am following-up with patient and per patient she does not want MRI and wants to go home. I spoke with the son and he feels she has early onset dementia for the last 6 months. Objective - Vital Signs Vital signs: Vital Signs Temp 97.9 F 12/25/23 09:25 Pulse 80 12/25/23 11:20 Resp 16 12/25/23 11:20 BP 164/97 12/25/23 11:20 Pulse Ox 96 12/25/23 11:20 FiO2 Intake & Output 12/24/23 12/25/23 12/25/23 18:59 06:59 18:59 Intake Total 570 10 458 Balance 570 10 458 Intake: IV 10 Invasive Line 1 10 Oral 570 458 Other: Voiding Method Toilet Toilet # Voids 1 1 # Bowel Movements 2 - Exam General: Sitting in a recliner chair and is not in acute distress. Neuro: The patient is awake, alert, oriented to self, place. She stated she does not know time and year. She correctly stated the current stated and country and capital [place]. She name objects correctly (pen and watch). Is following simple commands. No aphasia or neglect. Pupils are round, equal and reactive to light bilaterally. [place] are full to confrontation. EOM intact and no nystagmus. Normal facial sensation to touch. No facial weakness. No dysarthria. Is moderate to severe hearing loss to hand rub bilaterally. Motor: Gait is normal. Strength is 5/5 throughout. Sensation is normal. Reflex: 1+ Extremities: Has edema in lowers. Some of the work-up consisted of: Wbc is normal. HbA1c: 7.1 TSH: 1.180 I reviewed rest of lab work-up. - Labs CBC & Chem 7: 12/25/23 08:48 12/25/23 08:48 Labs: Abnormal Lab Results - Last 24 Hours (Table) 12/24/23 12/24/23 12/24/23 Range/Units 15:49 16:36 20:14 Plt Count (150-450) k/uL BUN (7-17) mg/dL Glucose (74-99) mg/dL POC Glucose (mg/dL) 179 H 176 H (70-110) mg/dL Vitamin B12 195.0 L (200.0-944.0) pg/mL 12/25/23 12/25/23 12/25/23 Range/Units 08:48 08:48 11:50 Plt Count 459 H (150-450) k/uL BUN 32 H (7-17) mg/dL Glucose 184 H (74-99) mg/dL POC Glucose (mg/dL) 151 H (70-110) mg/dL Vitamin B12 (200.0-944.0) pg/mL Assessment and Plan Assessment: This is an 78-year-old woman with recent UTI and had confusion. Currently confusion is drastically better and feels is doing better. Acute delirium due to acute UTI and Has Vitamin B12 deficiency as well.---drastic improvement. Recent UTI Vitamin B12 deficiency 195 Possible underlying dementia in the last 6 months per son. Possibly has vascular dementia and has other factors contributing to pseudodementia (B12 deficiency) History of stroke Diabetes mellitius Plan: Ammonia level <9 folate: 13 Vitamin B12 deficiency: 195: I started her on Vitamin B12 1000mcg IM for two days and after that PO. Recommend rechecks level as outpatient. CT head: No No acute bleed or mass effect. 3 focal cortical and subcortical infarct involving the left cerebellum, left frontal lobe and left parietal lobe. based on variable density, left frontal and parietal are subacute to chornic and left cerebellar is clearly remote. I ordered MRI Brain and carotid duplex. I will proceed with routine EEG because of confusion. Recommend the patient to follow-up with a neurologist as outpatient and recommend a neuropsych evaluation as outpatient for memory testing. Psychiatry is consulted. Recommend the patient to follow-up with neurologist as outpatient within 2 weeks. Will defer the rest of medical management to the primary team. The plan is discussed with patient and her son via phone. The patient does not want to proceed with MRI Brain but the son does. Time with Patient: Less than 30
--- NOTE | 2023-12-25 16:23 | P.PN ---
Subjective Progress Note Date: 12/25/23 HISTORY OF PRESENT ILLNESS: This is a 78-year-old female with a past medical history significant for atrial fibrillation, hypertension, hyperlipidemia, diabetes, CVA, and breast cancer. Patient does not follow with a readers' advisory service librarian. We have been asked to see the patient in consultation for atrial fibrillation and congestive heart failure. Patient examined at the bedside. Patient's son is at the bedside and providing additional HPI. Patient was recently diagnosed with a urinary tract infection. He states that she has been getting more weak at home. She also has had some altered mental status. She denied any fever or chills. She reports having shortness of breath with exertion on an outpatient basis. She states walking to her mailbox she will become dyspneic. Patient's son also reports that the patient has had breast cancer twice. He states the first time she underwent a double mastectomy and refused radiation or chemotherapy at that time. Last year the patient had a recurrence of her breast cancer and had a surgical procedure to remove the "wound" per her son. She once again refused radiation or chemotherapy. The patient states that she did see a readers' advisory service librarian last year in [place] before proceeding with her breast surgery. She denies any history of coronary artery disease or congestive heart failure. The patient's family states that she is very weak and they are interested in ECF at the time of discharge. DIAGNOSTICS: - EKG reveals atrial fibrillation with RVR. - Chest xray cardiomegaly and mild pulmonary vascular congestion. - Laboratory data: WBC 8.7. Hemoglobin 12.4. Platelet count 311. Sodium 135. Potassium 4.5. BUN 22. Creatinine 0.67. Magnesium 1.4. Troponin negative x 1. proBNP 7630. TSH 1.180. - Current home cardiac medications include warfarin 4 mg daily, irbesartan 300 mg daily, Toprol tartrate 100 mg twice a day, and hydrochlorothiazide 50 mg daily as needed. 12/22/2023 Patient examined this morning. Patient is sitting up in the chair. Patient states her breathing feels about the same as yesterday. She denies any chest pain or pressure. Patient remains in atrial fibrillation with controlled ventricular rate. Patient does go into RVR with ambulation. Echocardiogram completed revealing ejection fraction 40 to 45%, mild MS, mild MR, moderate TR, moderate pulmonary hypertension 12/23/2023 Patient examined this morning. She is sitting up in the chair. Patient currently denies any chest pain or pressure. She denies any shortness of breath. Patient remains in atrial fibrillation with controlled ventricular rate. Per nursing, patient did have an episode of RVR with ambulation. Patient's blood pressures are elevated this morning. Patient has received her medications and nursing to recheck blood pressure shortly. 12/23 patient seen and examined. Patient denies any chest pain or pressure. States her breathing is stable. 12/24 Patient is seen today in follow-up. She is waiting for an MRI of the brain and EEG is pending. Blood pressure 164/97, heart rate 80, pulse ox 96% on room air. Carotid ultrasound reveals less than 50% stenosis of the carotid bifurcations. Patient remains in atrial fibrillation with varied rate. PHYSICAL EXAM: VITAL SIGNS: Reviewed. GENERAL: Well-developed in no acute distress. HEENT: Head is normocephalic. Pupils are equal, round. Sclerae anicteric. Mucous membranes of the mouth are moist. Neck supple. No JVD or thyromegaly LUNGS: Respirations even and unlabored. Lungs essentially clear to auscultation bilaterally. HEART: Irregular rate and rhythm. S1 and S2 heard. ABDOMEN: Soft. Nondistended. Nontender. EXTREMITIES: Normal range of motion. No clubbing or cyanosis. Peripheral pulses intact. No lower extremity edema NEUROLOGIC: Awake and alert. Oriented x 3. ASSESSMENT: Atrial fibrillation with RVR, paroxysmal versus persistent Recent urinary tract infection, treated outpatient Altered mental status, resolved Subtherapeutic INR Hypertension Hyperlipidemia Diabetes History of CVA History of breast cancer with previous bilateral mastectomy Hypomagnesemia Moderate pulmonary hypertension Cardiomyopathy, EF 40 to 45%, ischemic versus nonischemic, duration unknown as n o previous echo available for review Mild heart failure with reduced EF, proBNP 7630 PLAN: Continue patient on Eliquis Continue metoprolol 100 mg twice daily and Cardizem 60 mg twice daily Patient is also been started on Farxiga 10 mg daily and Lasix 20 mg oral daily, losartan 100 mg daily Continue telemetry monitoring patient appears stable for discharge home/ rehab from a cardiac standpoint. Further recommendations pending patient course Nurse practitioner note has been reviewed, I agree with documented findings and plan of care. Patient was seen and examined. Objective - Vital Signs Vital signs: Vital Signs Temp 97.9 F 12/25/23 09:25 Pulse 80 12/25/23 11:20 Resp 16 12/25/23 11:20 BP 164/97 12/25/23 11:20 Pulse Ox 96 12/25/23 11:20 FiO2 Intake & Output 12/24/23 12/25/23 12/25/23 18:59 06:59 18:59 Intake Total 570 10 458 Balance 570 10 458 Intake: IV 10 Invasive Line 1 10 Oral 570 458 Other: Voiding Method Toilet Toilet # Voids 1 1 # Bowel Movements 2 - Labs CBC & Chem 7: 12/25/23 08:48 12/25/23 08:48 Labs: Abnormal Lab Results - Last 24 Hours (Table) 12/24/23 12/24/23 12/24/23 Range/Units 15:49 16:36 20:14 Plt Count (150-450) k/uL BUN (7-17) mg/dL Glucose (74-99) mg/dL POC Glucose (mg/dL) 179 H 176 H (70-110) mg/dL Vitamin B12 195.0 L (200.0-944.0) pg/mL 12/25/23 12/25/23 12/25/23 Range/Units 08:48 08:48 11:50 Plt Count 459 H (150-450) k/uL BUN 32 H (7-17) mg/dL Glucose 184 H (74-99) mg/dL POC Glucose (mg/dL) 151 H (70-110) mg/dL Vitamin B12 (200.0-944.0) pg/mL
[2023-12-25] MEDS: CYANOCOBALAMIN 1,000 MCG/ML 1 ML VIAL IM SCH (16:31)
[2023-12-25 16:39] LABS: Glucose,Whole Blood 269 mg/dL (70-110)
[2023-12-25 20:07] LABS: Glucose,Whole Blood 89 mg/dL (70-110)
--- NOTE | 2023-12-25 20:54 | EEG ---
ELECTROENCEPHALOGRAM REPORT CLINICAL HISTORY: This is an 78-year-old woman with history of stroke with altered mental status. The video EEG is obtained to evaluate for seizure epileptiform activity. RELEVANT MEDICATION: The patient is not on any antiepileptic drugs. EEG TYPE: This is a routine 21-channel EEG with video using the 10/20 electrode placement system. DESCRIPTION: Wakefulness and drowsiness is obtained. During awake state, the posterior-dominant rhythm consists of pbp-as-[id number] voltage of 8 to 8.5 hertz activity that is well modulated, well sustained. There is no physiological stage 2 sleep architecture. There is delta/theta slowing over the left temporal more than right temporal. Interictal and ictal is none. ACTIVATION PROCEDURE: Photic stimulation did not evoke a posterior driving response. There is no abnormality during the photic stimulation. Hyperventilation is not performed. CLINICAL INTERPRETATION: This is an abnormal routine EEG. The focal slowing over the temporal noted mostly in the left is suggestive of focal cerebral dysfunction in the involved region. Otherwise, there is no epileptiform discharges or seizure on the EEG. Clinical correlation is recommended. MMODL / IJN: [id number] /
[2023-12-26 06:14] LABS: Glucose,Whole Blood 104 mg/dL (70-110)
[2023-12-26 06:43] VITALS: RESP 20
[2023-12-26 09:05] VITALS: BP 173/103; PULSE 102; TEMP 97.8
--- NOTE | 2023-12-26 11:14 | P.DS ---
Providers Date of admission: 12/20/23 17:09 Expected date of discharge: 12/26/23 Attending physician: Amarjit Wood Consults: 12/20/23 17:08 Consult Physician Routine Consulting Provider: Kodak Macario Consult Reason/Comments: A-fib/CHF Do you want consulting provider notified?: Yes 12/22/23 16:07 Consult Physician Routine Consulting Provider: Kenny Vidales Consult Reason/Comments: determine if patient is competent to make decisions for self Do you want consulting provider notified?: Yes 12/23/23 11:15 Consult Physician Routine Consulting Provider: Luis Feranndo Schwab Consult Reason/Comments: neuro, [facility] Do you want consulting provider notified?: Yes Primary care physician: Amarilis Thornton Hospital Course: Discharge diagnosis 1. Increased weakness 2. Atrial fibrillation with rapid ventricular response 3. History of atrial fibrillation maintained on Coumadin 4. Recent urinary tract infection. Patient was treated outpatient UA negative 5. History of diabetes mellitus type 2 6. History of essential hypertension 7. History of breast cancer in 2019 with double mastectomy 8. Altered mental status changes 9. Possible underlining dementia patient was evaluated by neurology services recommend the patient follow up with neurologist as outpatient and recommended neuropsych evaluation as outpatient for memory testing. MRI was ordered patient refused recommend outpatient MRI 10. Vitamin B12 deficiency the patient will be DC'd on by mouth vitamin B12 per neurology recommendation Hospital course Viola Mckeon, is an 78-year-old female patient presents to ER with concerns ofincreased weakness. Records also indicate that patient has had increased confusion over the past year. Patient has poor historian no family present most history is obtained from medical record. According to records patient was recently treated for urinary tract infection. Patient has a past medical history of atrial fibrillation in which she is maintained on Coumadin, diabetes mellitus, breast cancer in 2019 status post bilateral mastectomy, and hypertension.EKG completed showing atrial fibrillation with rapid ventricular response and a heart rate of 137. Chest x-ray completed showing cardiomegaly and pulmonary vascular congestion. labwork revealing troponin 0.012, BNP 7630. UA was negative. This time patient is sitting in bed. Patient denies chest pain or shortness of breath. Patient denies nausea vomiting or diarrhea. Patient denies any urinary burning or frequency On 12/22/2023 patient was seen and examined on the medical floor, she is alert and oriented 3 in no apparent distress, there is no fever or chills no headache or dizziness no chest pain no shortness of breath no cough no nausea or vomiting no abdominal pain no diarrhea and no urinary symptoms. Vital examination reveals a temperature of 97.5 pulse 125 respiration 16 blood pressure 166/76 pulse ox 95% on room air On 12/23/2023 patient was seen and examined on the medical floor, she is alert however she was having episodes of confusion and mental status changes, she denies any symptoms at this time there is no fever or chills no headache or dizziness no chest pain no shortness of breath no cough no nausea or vomiting no abdominal pain no diarrhea no urinary symptoms. Family is very concerned about her episodes of confusion. Consultation for neurology and psychiatry were added. On 12/24/2023 patient was seen and examined on the medical floor she is alert and oriented at this time in no apparent distress there is no fever or chills no headache or dizziness no chest pain no shortness of breath no cough no nausea or vomiting no abdominal pain no diarrhea and no urinary symptoms. Patient was having episodes of confusion, neurology consultation and psychiatry consultation were requested, computed tomography scan of the brain was ordered, will continue to follow closely. on 12/25/2023 patient is alert and oriented sitting comfortably in chair. CT completed yesterday showing no acute bleed or mass effect. 3 focal cortical and subcortical infarcts involving the left cerebellum left frontal lobe and left pe riorbital lobe. Based on variable density of the left frontal and left. Old infarcts are subacute to chronic the left cerebral infract is clearly remote. Awaiting further recommendations from neurology services On 12/26/2023 patient is alert and oriented sitting comfortably in chair. Patient is adamant she does not want MRI would like to go home. Patient verbalized understanding that she will follow up outpatient with MRI and follow up with neurology services for further recommendation.Patient will be discharged on new medications of eliquis Coumadin DC'd and Cardizem for rate control. Patient to follow-up with PCP consulting providers for further management. Patient denies chest pain or shortness of breath. Patient denies nausea vomiting or diarrhea. Patient denies any urinary burning or frequency Patient Condition at Discharge: Stable Plan - Discharge Summary Discharge Rx Participant: No New Discharge Prescriptions: New Diltiazem Oral [Cardizem*] 60 mg PO BID 30 Days #60 tab Apixaban [Eliquis] 5 mg PO BID 30 Days #60 tab Dapagliflozin Propanediol [Farxiga] 10 mg PO DAILY 30 Days #30 tab Furosemide [Lasix] 20 mg PO DAILY 30 Days #30 tab Cyanocobalamin [Vitamin B-12] 1,000 mcg PO DAILY 30 Days #60 tab Continue metFORMIN HCL 1,000 mg PO BID Metoprolol Tartrate [Lopressor] 100 mg PO BID Insulin Glargine [Lantus Vial] 25 unit SQ DAILY@1200 sitaGLIPtin [Januvia] 100 mg PO DAILY Irbesartan 300 mg PO DAILY Discontinued Sulfamethox-Tmp 800-160Mg [Bactrim DS 800-160 mg] 1 tab PO BID Warfarin Sodium 4 mg PO DAILY hydroCHLOROthiazide [Hydrodiuril] 50 mg PO DAILY PRN PRN Reason: Edema Discharge Medication List Insulin Glargine [Lantus Vial] 25 unit SQ DAILY@1200 12/20/23 [History] Irbesartan 300 mg PO DAILY 12/20/23 [History] Metoprolol Tartrate [Lopressor] 100 mg PO BID 12/20/23 [History] metFORMIN HCL 1,000 mg PO BID 12/20/23 [History] sitaGLIPtin [Januvia] 100 mg PO DAILY 12/20/23 [History] Apixaban [Eliquis] 5 mg PO BID 30 Days #60 tab 12/26/23 [Rx] Cyanocobalamin [Vitamin B-12] 1,000 mcg PO DAILY 30 Days #60 tab 12/26/23 [Rx] Dapagliflozin Propanediol [Farxiga] 10 mg PO DAILY 30 Days #30 tab 12/26/23 [Rx] Diltiazem Oral [Cardizem*] 60 mg PO BID 30 Days #60 tab 12/26/23 [Rx] Furosemide [Lasix] 20 mg PO DAILY 30 Days #30 tab 12/26/23 [Rx] Follow up Appointment(s)/Referral(s): Amarilis Thornton MD [Primary Care Provider] - 1-2 days Tyler Rodriguez DO [STAFF PHYSICIAN] - 1 Week Aicha Camargo MD [REFERRING] - 1 Week Discharge/Stand Alone Forms: Who Do I Call?, Adult Foster Fdc List, Assisted Living Facilities, Community Resources, Help In The Home Discharge Disposition: HOME SELF-CARE
--- NOTE | 2023-12-26 11:19 | CDI ---
Documentation Clarification Form Date: 12/26/2023 10:41:33 AM From: Renata Echols RN CCDS Phone: [phone] Admit Date: 12/20/2023 05:09:00 PM Patient Name: Viola Mckeon Visit Number: [id number] Discharge Date: ATTENTION: The Clinical Documentation Specialists (CDI) and [facility] Coding Staff appreciate your assistance in clarifying documentation. Please respond to the clarification below the line at the bottom and electronically sign. The CDI & [facility] Coding staff will review the response and follow-up if needed. Please note: Queries are made part of the Legal Health Record. If you have any questions, please contact the author of this message via ITS. Dr. Vimal Carney MD Your patient has the documented symptom of Delirium on 12/24, Neurology note. Additional clarification regarding the etiology/cause of this symptom is requested. History/Risk Factors: 78 year old female presents to the ED with confusion increased over several days being treated for UTI. Medical history: Atrial fibrillation, Breast cancer, DM, HTN and recent UTI. 12/20, H&P. Clinical Indicators: Labs, 12/23: Vitamin B12 195.0; 12/19: UA light yellow in color, clear, protein trace, ketones 1+ CXR ,12/19: Cardiomegaly and mild pulmonary vascular congestion. CT Brain, 12/23: 3 focal cortical and subcortical infarcts involving the left cerebellum, left frontal lobe and left parietal lobe.Based on variable density, the left frontal and left parietal infarcts are subacute to chronic. The left cerebellar infarct is clearly remote. EEG, 12/24: This is an abnormal routine EEG.The focal slowing over the temporal noted mostly in the left is suggestive of focal cerebral dysfunction in the involved region. Otherwise, there is no epileptiform discharges or seizure on the EEG. Clinical correlation is recommended Treatment: 12/24 Vitamin B12 1,000mcg IM Daily, Vitamin B-12 1,000mcg po daily Please clarify the etiology of the symptom of Delirium: [ ] Metabolic Encephalopathy due to recent UTI and Vitamin B12 [ ] Other condition (please specify) [ ] Unable to determine ---As stated in note, Delirium is due to underlying acute UTI and B12 Deficiency. (Template Last Revised: September 2020) MTDD
[2023-12-26 12:12] LABS: Glucose,Whole Blood 249 mg/dL (70-110)
--- NOTE | 2023-12-26 12:31 | P.PN ---
Subjective Progress Note Date: 12/26/23 Will follow-up with the patient. Patient continues to refuse updating the MRI. Spoke with the primary team N.P. and she stated she will have the patient obtain MRI as an outpatient. Objective - Vital Signs Vital signs: Vital Signs Temp 97.8 F 12/26/23 08:00 Pulse 102 H 12/26/23 08:00 Resp 20 12/26/23 08:00 BP 173/103 12/26/23 08:00 Pulse Ox 93 L 12/26/23 08:00 FiO2 Intake & Output 12/25/23 12/26/23 12/26/23 18:59 06:59 18:59 Intake Total 576 462 Balance 576 462 Intake: Oral 576 462 Other: Voiding Method Toilet Toilet Toilet # Voids 1 3 # Bowel Movements 2 1 - Exam General: Sitting in a recliner chair and is not in acute distress. Neuro: The patient is awake, alert, oriented to self, place. She stated she does not know time and year. She correctly stated the current stated and country and capital [place]. She name objects correctly (pen and watch). Is following simple commands. No aphasia or neglect. Pupils are round, equal and reactive to light bilaterally. [place] are full to confrontation. EOM intact and no nystagmus. Normal facial sensation to touch. No facial weakness. No dysarthria. Is moderate to severe hearing loss to hand rub bilaterally. Motor: Gait is normal. Strength is 5/5 throughout. Sensation is normal. Reflex: 1+ Extremities: Has edema in lowers. Some of the work-up consisted of: Wbc is normal. HbA1c: 7.1 TSH: 1.180 I reviewed rest of lab work-up. - Labs CBC & Chem 7: 12/25/23 08:48 12/25/23 08:48 Labs: Abnormal Lab Results - Last 24 Hours (Table) 12/25/23 12/26/23 Range/Units 16:37 12:10 POC Glucose (mg/dL) 269 H 249 H (70-110) mg/dL Assessment and Plan Assessment: This is an 78-year-old woman with recent UTI and had confusion. Currently confusion is drastically better and feels is doing better. Acute delirium due to acute UTI and Has Vitamin B12 deficiency as well.---drastic improvement. Recent UTI Vitamin B12 deficiency 195 Possible underlying dementia in the last 6 months per son. Possibly has vascular dementia and has other factors contributing to pseudodementia (B12 deficiency) History of stroke Diabetes mellitius Plan: Ammonia level <9 folate: 13 Vitamin B12 deficiency: 195: I started her on Vitamin B12 1000mcg IM for two days and after that PO. Recommend rechecks level as outpatient. CT head: No No acute bleed or mass effect. 3 focal cortical and subcortical infarct involving the left cerebellum, left frontal lobe and left parietal lobe. based on variable density, left frontal and parietal are subacute to chornic and left cerebellar is clearly remote. Patient is refusing MRI Brain repeatedly. I spoke with the AGRICULTURAL EXTENSION SPECIALIST from the primary team and they stated that they will have the patient obtain MRI as an outpatient Carotid duplex: Less than 50% stenosis of the carotid bifurcation Routine EEG: There is abnormal. The focal slowing over the temporal noted mostly the left suggestive of focal cerebral dysfunction in the involved region. There is no epileptiform discharges or seizure on the EEG. Recommend the patient to follow-up with a neurologist as outpatient and recommend a neuropsych evaluation as outpatient for memory testing. Psychiatry is consulted. Recommend the patient to follow-up with neurologist as outpatient within 2 weeks. Will defer the rest of medical management to the primary team. The plan is discussed with patient, her nurse and N.P. from primary team. Otherwise no additional neurological work-up. Time with Patient: Less than 30
[2023-12-27] MEDS ORDERED: CYANOCOBALAMIN 500 MCG TAB PO SCH (09:00)
--- NOTE | 2024-01-10 08:10 | CDI ---
Documentation Clarification Form Date: 12/24/2023 11:47:00 AM From: Renata Echols RN CCDS Phone: [phone] Admit Date: 12/20/2023 05:09:00 PM Patient Name: Viola Mckeon Visit Number: [id number] Discharge Date: 12/26/2023 01:20:00 PM ATTENTION: The Clinical Documentation Specialists (CDI) and [facility] Coding Staff appreciate your assistance in clarifying documentation. Please respond to the clarification below the line at the bottom and electronically sign. The CDI & [facility] Coding staff will review the response and follow-up if needed. Please note: Queries are made part of the Legal Health Record. If you have any questions, please contact the author of this message via ITS. Dr. Reyna Huber Your patient has the documented diagnosis of Mild systolic CHF, cardiology note, 12/21. Additional information regarding the acuity of Systolic CHF is requested. History/Risk Factors: 78-year-old female presents to the ED with confusion and increased weakness, accompanied by her son. Medical history: CVA, DM, HTN, HLD, CAD, Breast cancer; CHF and Atrial Fibrillation. 12/19, ED note. Clinical Indicators: VS/Pulse OX, 12/19: B/P 202/124; HR 124; Temp 98.3Foral; RR 18 SpO2 91 % ra BNP, 12/20: 7630 Echocardiogram Results, 12/20: Mildly dilated LV. The LV systolic function is impaired at 40-45%. Mild to moderate mitral regurgitation and mild mitral stenosis. Moderate pulmonary hypertension. Enlarged right ventricle with mildly reduced function. Moderate tricuspid regurgitation. Chest X Ray, 12/19: Cardiomegaly and mild pulmonary vascular congestion. Treatment: 12/19 Lasix 40mg IV x1; 12/21 Lasix 20mg PO Daily; 12/20 Cozaar 100mg PO Daily; 12/20 Lopressor 100mg PO Bid In your professional opinion, can you please clarify the acuity and of Systolic CHF if known? [ ] Acute on Chronic Systolic Heart Failure (reduced EF) [ ] Other, please specify [ ] Unable to determine I have already answered this. As previously stated, patient does not have a hx of CHF acute heart failure with reduced EF (Template Last Revised: September 2020) MTDD
== END 2023-12-26 13:20 | disposition home or self-care (01) | DRG 308 ==
LOC: EC 15:16 → 3SCARD 17:09
PROVIDERS: ADMIT Internal Medicine; ATTEND Internal Medicine
DX: I48.91 Unspecified atrial fibrillation (principal); I50.21 Acute systolic (congestive) heart failure; F05 Delirium due to known physiological condition; N39.0 Urinary tract infection, site not specified; I42.9 Cardiomyopathy, unspecified; I11.0 Hypertensive heart disease with heart failure; I27.20 Pulmonary hypertension, unspecified; R79.1 Abnormal coagulation profile; E83.42 Hypomagnesemia; E78.5 Hyperlipidemia, unspecified; E53.8 Deficiency of other specified B group vitamins; Z79.01 Long term (current) use of anticoagulants; Z79.4 Long term (current) use of insulin; Z79.84 Long term (current) use of oral hypoglycemic drugs; Z79.899 Other long term (current) drug therapy; Z85.3 Personal history of malignant neoplasm of breast; Z90.13 Acquired absence of bilateral breasts and nipples; Z86.73 Personal history of transient ischemic attack (TIA), and cerebral infarction without residual deficits; Z87.440 Personal history of urinary (tract) infections
CPT/HCPCS: 36415; 70450; 71046; 80053; 81003; 82140; 82607; 82746; 83036; 83605; 83735; 83880; 84443; 84484; 85025; 85610; 85730; 93005; 93306; 93880; 95816; 96361; 96365; 96366; 96367; 96368; 96375; 99291